=== PATIENT | female | born 1960 | race Caucasian/White ===

== ENCOUNTER 2016-10-26 12:13 | Day surgery (SDC) | payer BC ==
[2016-10-26] MEDS ORDERED: ALPRAZolam 0.5 MG TAB PO ONE (12:37)
--- NOTE | 2016-10-26 13:54 | US ---
ULTRASOUND GUIDED FNA THYROID BIOPSY: CLINICAL HISTORY: 1.8 cm and 1.1 cm left thyroid nodule requested FINDINGS: The procedure was explained to the patient. The risks, complications, benefits and alternatives were discussed and any questions were answered. Informed consent was obtained. Patient was placed supin e on the ultrasound table and prepped and draped in the usual sterile fashion. Utilizing a 25 gauge needle, five passes were made into the 1.8 cm left thyroid nodule. The 1.1 cm nodule was completely c alcified and needle could not traverse to calcified wall.. Patient was stable throughout the procedure. Pathology is pending. All elements of maximal barrier technique were utilized. IMPRESSION: 1. Successful ultrasound guided FNA thyroid biopsy 1.8 cm left thyroid nodule. See above regarding c alcified 1.1 cm left thyroid nodule..
[2016-10-26 16:09] VITALS: TEMP 97.4
[2016-10-26 16:10] VITALS: BP 121/78; PULSE 84; RESP 18
== END 2016-10-26 14:05 | disposition home or self-care (01) ==
LOC: RADPROMAIN 12:13
PROVIDERS: ATTEND Internal Medicine Endocrinology, Diabetes & Metabolism
DX: E04.1 Nontoxic single thyroid nodule (principal)
CPT/HCPCS: 10022; 76942; 88173; 88305

== ENCOUNTER → 2016-12-01 | Outpatient (CLI) | payer BC | END | disposition home or self-care (01) | LOC: LABWHC1 15:07 | PROVIDERS: ATTEND Surgery | DX: E04.1 Nontoxic single thyroid nodule (principal) | CPT/HCPCS: 36415; 84439; 84443; 84481 ==

== ENCOUNTER 2017-01-10 07:56 | Observation (INO) | payer BC ==
[2017-01-05 14:20] VITALS: BMI 35.6
[~2017-01-10 07:56] MED LIST: DEXAMETHASONE SOD PHOSPHATE 10 MG/ML 1 ML VIAL IV ONE; HEPARIN SODIUM,PORCINE 5,000 UNIT/ML 1 ML VIAL SQ ONE; ONDANSETRON 4 MG/2 ML VIAL IVP ONE; Pre Op ABX Message 1 EACH MISC MISCELLANE ONE
[2017-01-10] MEDS: LACTATED RINGERS 1,000 ML IV SCH ×2 (08:22→09:12)
[2017-01-10] MEDS ORDERED: LIDOCAINE 1% 20 ML VIAL (10MG/ML) FOR IV START INTRADERMA ONE (08:22)
[2017-01-10] MEDS ORDERED: HEPARIN SODIUM,PORCINE 5,000 UNIT/ML 1 ML VIAL SQ ONE (08:27)
[2017-01-10] MEDS ORDERED: MIDAZOLAM 2 MG/2 ML VIAL ONE (09:13)
[2017-01-10] MEDS ORDERED: LIDOCAINE 1% INJ 10MG/ML (20 ML MDV) ONE (09:13)
[2017-01-10] MEDS ORDERED: SUCCINYLCHOLINE CHLORIDE 100 MG/5 ML SYR IV ONE (09:13)
[2017-01-10] MEDS ORDERED: PROPOFOL 10 MG/ML 20 ML VIAL IV ONE (09:13)
[2017-01-10] MEDS ORDERED: fentaNYL (PF) 50 MCG/ML 2 ML AMP ONE (09:13)
[2017-01-10] MEDS ORDERED: LACTATED RINGERS 1,000 ML IV ONE ×2 (10:20→12:37)
[2017-01-10] MEDS ORDERED: GELATIN SPONGE,ABSORB (LARGE) 1 EACH SPONGE TOPICAL ONE (11:03)
[2017-01-10] MEDS ORDERED: THROMBIN (BOVINE) 5,000 UNIT VIAL TOPICAL ONE (11:04)
[2017-01-10] MEDS ORDERED: NALOXONE 0.4 MG/ML 1 ML VIAL IV PRN (11:46)
[2017-01-10] MEDS ORDERED: ONDANSETRON 4 MG/2 ML VIAL IVP PRN (11:46)
--- NOTE | 2017-01-10 11:46 | P.OP ---
Date of Procedure: 01/10/17 Preoperative Diagnosis: Left thyroid nodularity, calcified nodule and FNA showing Hurthle cell lesion, status post right thyroid lobectomy many years ago Postoperative Diagnosis: Multiple nodules left lobe of thyroid, inferior nodule being calcified Procedure(s) Performed: Left thyroid lobectomy, and isthmusectomy Implants: Anesthesia: ALDAIRA Surgeon: Annmarie Sky Estimated Blood Loss (ml): 20 IV fluids (ml): 1,500 Pathology: other (Left lobe of thyroid) Condition: stable Disposition: PACU Indications for Procedure: Enlarged left thyroid nodules one calcified unable to sample and another nodular Hurthle cell lesion, patient recommended by endocrinology to have a left thyroid lobectomy, patient status post right thyroid lobectomy many years ago Operative Findings: Nodularity left lobe of thyroid, extensive scar tissue Description of Procedure: Patient was taken to the operating room and following induction of general anesthesia the retractors were placed. The patient was placed in the modified beachchair position. The prep was prepped and draped in a sterile fashion. A collar incision was made approximately 2 fingerbreadths above the sternal notch and carried down through skin and subcutaneous tissue and the platysma. Superior and inferior skin flaps were developed. The strap muscles were in the midline. The strap muscles were excised presently adherent to the left lobe of the thyroid and it was necessary to use meticulous dissection to dissect these off of the thyroid gland. The muscles were carefully dissected free and the gland was able to rotated medially. Again there was marked scar tissue was necessary to carefully dissect this free ligating several vessels and it in the vicinity. The superior pole vessels were then identified these were ligated and divided. Inferior pole vessels were likewise identified and ligated and divided. The lobe was rotated medially being careful to identify and preserve the recurrent laryngeal nerve. The tissues were carefully dissected up onto the trachea and the gland was removed was dissected free on the trachea. The area of the superior and inferior parathyroids were identified and preserved. The isthmus was present and we dissected across the isthmus and to scar tissue and the gland was removed. There appeared to be a small amount of residual thyroid tissue near the inferior pole this was carefully dissected free and this was approximated to the recurrent laryngeal nerve which was preserved this was resected. The area of the ligament of Montgomery was likewise evaluated no evidence of any bleeding was identified small additional amount of tissue was able to be resected from this area. Palpation in the neck did not reveal any adenopathy of concern. Palpation of the right neck did not reveal residual thyroid tissue of concern. The neck was well irrigated. After assured that there was no evidence of any bleeding. Gelfoam and thrombin were placed on either the ligament of Montgomery. Again the recurrent laryngeal nerve was well seen and preserved. The area of the superior inferior parathyroids were identified and preserved as well. The strap muscles were closed in midline using a Vicryl suture. Platysma was closed with 3-0 Vicryl suture. A Sherman drain had been left in this was secured using a silk suture. Skin was closed using 4-0 Monocryl. Patient tolerated procedure in stable condition. Thank you this is a dictation patient seen in each eye 3 times a day 30 The patient tolerated the procedure in stable condition.
[2017-01-10 12:05] VITALS: RESP 16
[2017-01-10] MEDS: HYDROmorphone 1 MG/ML 1 ML SYRINGE IVP PRN ×7 (12:18→23:52)
[2017-01-10 16:35] LABS: Calcium 9.1 mg/dL (8.4-10.2); Magnesium 1.7 mg/dL (1.6-2.3); Phosphorous 4.5 mg/dL (2.5-4.5)
--- NOTE | 2017-01-10 18:01 | P.CONS ---
History of Present Illness - Reason for Consult Consult date: 01/10/17 Medical management Requesting physician: Annmarie Sky - Chief Complaint Post left sided thyroidectomy, palpitation, hyperlipidemia, arrhythmia - History of Present Illness 56-year-old female one of Dr. Young's patient with past medical history of palpitation hypothyroidism previous history of thyroid nodular who has been seen an boiling house oiler in [facility] and has been watching thyroid nodular in the left side for the last few years with fine-needle biopsy and other lately her biopsy showed Hurthle cell lesion. Patient was referred to Dr. Adhikari and is scheduled for elective left sided thyroidectomy which was done today successfully with no complication. Patient was admitted to the floor she has no hoarseness no shortness of breath wheezes or any major complaints still have slight soreness in the neck area otherwise doing well. Review of Systems Constitutional: Reports fatigue, Reports lethargy, Reports malaise, Reports weakness, Denies as per HPI, Denies anorexia, Denies chills, Denies chronic headaches, Denies chronic pain, Denies daytime sleepiness, Denies fever, Denies night sweats, Denies poor appetite, Denies sweats, Denies weight gain, Denies weight loss Eyes: bilateral as per HPI Ears: bilateral: decreased hearing Ears, nose, mouth and throat: Reports nasal congestion, Reports neck fullness/ pressure, Reports swelling in throat, Denies as per HPI, Denies ant. neck pain, Denies bleeding gums, Denies dental pain, Denies dysphagia, Denies epistaxis, Denies headache, Denies hoarseness, Denies mouth pain, Denies nasal discharge, Denies neck lump, Denies nose pain, Denies odynophagia, Denies post-nasal drip, Denies sinus pain, Denies sinus pressure, Denies swelling in mouth, Denies sore throat, Denies vertigo, Denies voice changes Cardiovascular: Reports lightheadedness, Reports orthopnea, Reports palpitations , Reports paroxysmal nocturnal dyspnea, Denies as per HPI, Denies chest pain, Denies claudication, Denies decreased exercise tolerance, Denies dyspnea on exertion, Denies edema, Denies high blood pressure, Denies irregular heart beat , Denies leg edema, Denies phlebitis, Denies rapid heart beat, Denies shortness of breath, Denies syncope Respiratory: Reports congestion, Denies as per HPI, Denies cough, Denies cough with sputum, Denies dyspnea, Denies excessive sputum, Denies hemoptysis, Denies home oxygen, Denies pain, Denies pain on inspiration, Denies pleurisy, Denies respiratory infections, Denies sleep apnea, Denies snoring, Denies wheezing Gastrointestinal: Reports bloating, Reports indigestion, Denies as per HPI, Denies abdominal pain, Denies belching, Denies BRBPR, Denies change in bowel habits, Denies coffee ground emesis, Denies constipation, Denies diarrhea, Denies dyspepsia, Denies early satiety, Denies excessive gas, Denies heartburn, Denies hematemesis, Denies hematochezia, Denies jaundice, Denies lactose intolerance, Denies loss of appetite, Denies melena, Denies nausea, Denies vomiting Musculoskeletal: Reports low back pain, Reports neck pain, Denies as per HPI, Denies arm numbness/tingling, Denies atrophy, Denies fractures, Denies frequent falls, Denies gait dysfunction, Denies hot joints, Denies leg numbness/tingling , Denies limitation of motion, Denies loss of height, Denies morning stiffness, Denies muscle cramps, Denies muscle weakness, Denies myalgias, Denies neck stiffness, Denies prior amputations, Denies redness of joints, Denies shooting arm pain, Denies shooting leg pain Integumentary: Denies as per HPI, Denies acne, Denies boils, Denies brittle nails, Denies change in hair/nails, Denies color changes, Denies darkening of skin, Denies depigmentation, Denies dryness, Denies foot/leg ulcers, Denies growths, Denies hirsutism, Denies lesions, Denies onychomycosis, Denies pruritus , Denies rash, Denies sores, Denies striae, Denies unusual bruising, Denies wounds Neurological: Denies as per HPI, Denies aphasia, Denies ataxia, Denies balance difficulties, Denies burning pain, Denies change in mentation, Denies change in smell/taste, Denies change in speech, Denies confusion, Denies convulsions, Denies double vision, Denies gait dysfunction, Denies head injury, Denies headaches, Denies hearing difficulties, Denies lack of coordination, Denies loss of vision, Denies memory loss, Denies migraines, Denies motor disturbance, Denies numbness, Denies paralysis, Denies paresthesias, Denies seizures, Denies sensory deficit, Denies spasticity, Denies syncope, Denies tic, Denies tingling , Denies transient paralysis, Denies tremors, Denies vertigo, Denies weakness, Denies visual changes Psychiatric: Reports depression, Denies as per HPI, Denies anhedonia, Denies anxiety, Denies anxiety attacks, Denies change in appetite, Denies change in libido, Denies change in sleep habits, Denies confusion, Denies difficulty concentrating, Denies disorientation, Denies hallucinations, Denies hopelessness , Denies hypersomnia, Denies insomnia, Denies irritability, Denies memory loss, Denies mood swings, Denies paranoia, Denies sadness/tearfulness, Denies sleep disturbances, Denies suicidal ideation Endocrine: Reports excessive thirst, Reports fatigue, Reports heat intolerance, Denies as per HPI, Denies cold intolerance, Denies deepening of the voice, Denies excessive sweating, Denies flushing, Denies high blood sugars, Denies increase in ring/shoe/hat size, Denies low blood sugars, Denies nocturia, Denies palpitations, Denies polydipsia, Denies polyphagia, Denies polyuria, Denies proptosis, Denies recent glucocorticoid use, Denies thyroid mass, Denies weight change Hematologic/Lymphatic: Reports easy bruising, Denies as per HPI, Denies easy bleeding, Denies lymphadenopathy, Denies lymphedema, Denies thrombophilia Allergic/Immunologic: Reports allergic rhinitis, Denies as per HPI, Denies anaphylaxis, Denies angioedema, Denies gluten intolerance, Denies persistent infections, Denies seasonal allergies, Denies urticaria, Denies wheezing Past Medical History Past Medical History: Hyperlipidemia, Thyroid Disorder Additional Past Medical History / Comment(s): thyroid nodules, palpitations, varicose veins, History of Any Multi-Drug Resistant Organisms: None Reported Past Surgical History: Tonsillectomy Additional Past Surgical History / Comment(s): partial thyroidectomy, left oophorectomy, loop monitor insertion 07/21/14 Past Anesthesia/Blood Transfusion Reactions: No Reported Reaction Type of Cardiac Device: Loop Device Placement Date:: 07/21/14 Past Psychological History: Depression Smoking Status: Former smoker - Past Family History Mother Family Medical History: Cancer Father Family Medical History: Deep Vein Thrombosis (DVT) Medications and Allergies Home Medications Medication Instructions Recorded Confirmed Type Aspirin 81 mg PO DAILY 05/26/14 01/10/17 History Simvastatin [Zocor] 20 mg PO HS 05/26/14 01/10/17 History Cyanocobalamin (Vitamin B-12) 1,000 mcg PO DAILY 09/07/15 01/10/17 History [Vitamin B12] Ginkgo Biloba [place] Extract [Ginkgo] 60 mg PO DAILY 09/07/15 01/10/17 History Multivitamins, Thera [Multivitamin] 1 tab PO DAILY 09/07/15 01/10/17 History buPROPion HCL [Wellbutrin XL] 300 mg PO QAM 09/07/15 01/10/17 History Cholecalciferol [Vitamin D3] 2,000 unit PO DAILY 10/12/16 01/10/17 History Spironolactone [Aldactone] 25 mg PO DAILY 10/12/16 01/10/17 History Allergies Allergy/AdvReac Type Severity Reaction Status Date / Time No Known Allergies Allergy Verified 01/10/17 08:10 Physical Exam Vitals: Vital Signs Temp Pulse Pulse Resp BP BP Pulse Ox 01/10/17 15:30 74 16 121/64 94 L 01/10/17 15:15 75 16 123/65 98 01/10/17 15:00 74 16 122/62 99 01/10/17 14:45 76 16 117/62 98 01/10/17 14:30 75 16 123/67 99 01/10/17 14:15 76 16 119/65 99 01/10/17 14:00 75 16 141/72 98 01/10/17 13:45 98.0 F 72 16 134/70 98 01/10/17 13:10 98.5 F 68 16 135/89 98 01/10/17 12:55 71 16 143/93 98 01/10/17 12:40 70 16 140/90 98 01/10/17 12:25 98.5 F 71 16 141/92 98 01/10/17 12:10 98.5 F 71 16 139/84 99 01/10/17 11:56 98.5 F 79 16 94 L 01/10/17 08:20 98.2 F 70 20 147/91 96 Intake and Output 01/10/17 01/10/17 01/10/17 06:59 14:59 22:59 Intake Total 2200 Output Total 170 Balance 2029 Intake: IV 2200 Dextrose 5%-0.45% NaCl 1, 100 000 ml @ 100 mls/hr IV . Q10H MAKENNA Rx#:[id number] Output: Urine 150 Estimated Blood Loss 20 Other: Weight 97.069 kg Patient Weight 01/11/17 06:59 Weight 97.069 kg - Constitutional General appearance: no average body habitus, cooperative, no disheveled, no mild distress, no morbidly obese, no acute distress, no obese, no severe distress, no thin - EENT Incision from her thyroidectomy looks good with slight bruise on the neck area in the left side. Eyes: no abnormal pupil, no anicteric sclerae, no disc margins sharp, no edentulous, no EOMI, no PERRLA, no fundus normal, no photophobia, no dentition normal, no poor dentition, no ptosis, no scleral icterus, normal appearance ENT: no hard of hearing, no hearing grossly normal, no NA/AT, normal oropharynx , no other, no pharyngeal erythema, no thrush, no tonsillar exudates, no tonsillar swelling - Neck Neck: no lymphadenopathy, normal ROM, no other, no rigidity, no stridor, no thyromegaly Carotids: bilateral: upstroke normal - Respiratory Respiratory: bilateral: CTA, diminished, dullness, rales - Cardiovascular Rhythm: regular Heart sounds: normal: S1, S2 - Gastrointestinal General gastrointestinal: no absent bowel sounds, no decreased bowel sounds, no distended, no hepatomegaly, no hyperactive bowel sounds, normal bowel sounds, no organomegaly, no rigid, no scaphoid, soft, no splenomegaly, no tenderness, no umbilical hernia, no ventral hernia - Integumentary Integumentary: no calor, no cellulitis, no cyanotic, no decreased turgor, no flushed, no jaundiced, normal, no normal turgor, pale, rash, no ulcer - Neurologic Neurologic: CNII-XII intact - Musculoskeletal Musculoskeletal: gait normal, generalized weakness, no strength equal bilaterally, no right sided weakness, no left sided weakness - Psychiatric Psychiatric: A&O x's 3, appropriate affect Assessment and Plan Plan: 1 post left sided thyroidectomy: A Chin had Hurthle cell from her needle biopsy thyroidectomy was necessity pathology is pending at this point and to follow as an outpatient. 2 hypothyroidism: Patient most likely require thyroid replacement medication can be started in the hospital at 50 g levothyroxine and titrate dose higher depend on her TSH and free T4 in the next few weeks something can before [place] outpatient afterward. 3 chronic history of palpitation: Has been seen Dr. Valenzuela patient had loop monitor not in any medication currently. 4 hyperlipidemia: Has been on simvastatin 20 mg daily continue medication. 5 mild depression: Has been on Wellbutrin 300 mg daily. 6 mild edema: On Aldactone 25 g a day. 7 vitamin D deficiency: Continue vitamin D supplement. 8 GI prophylaxis: Patient will be on Pepcid 20 mg daily. 9 DVT prophylaxis: Patient be continue on knee-high SANTOS hose and Venodyne boots. CODE STATUS: Full code. Dr. Adhikari thank you very much for the consult if I can be any further help to please let me know.
[2017-01-10] MEDS: CALCIUM CARB-VIT D 500MG-200UN 1 EACH TAB PO SCH (18:04)
[2017-01-10] MEDS: HEPARIN SODIUM,PORCINE 5,000 UNIT/ML 1 ML VIAL SQ SCH ×2 (18:05→23:40)
[2017-01-10] MEDS: DEXTROSE 5%-0.45% NACL 1,000 ML IV SCH (20:59)
[2017-01-10] MEDS ORDERED: ATORVASTATIN 10 MG TAB PO SCH (21:00)
[2017-01-11 03:08] VITALS: TEMP 97.9
[2017-01-11] MEDS: DEXTROSE 5%-0.45% NACL 1,000 ML IV SCH ×2 (06:45→10:39)
[2017-01-11] MEDS: HYDROmorphone 1 MG/ML 1 ML SYRINGE IVP PRN (06:46)
[2017-01-11] MEDS: LACTATED RINGERS 1,000 ML IV SCH (08:27)
[2017-01-11] MEDS: HEPARIN SODIUM,PORCINE 5,000 UNIT/ML 1 ML VIAL SQ SCH (08:27)
[2017-01-11] MEDS: CALCIUM CARB-VIT D 500MG-200UN 1 EACH TAB PO SCH (08:28)
[2017-01-11 08:38] VITALS: BP 100/56; PULSE 74
[2017-01-11] MEDS ORDERED: buPROPion XL 300 MG TAB.ER.24H PO SCH (09:00)
[2017-01-11] MEDS ORDERED: NON-FORMULARY DRUG (Ginkgo Biloba Leaf Extract [Ginkgo] 60 MG) PO SCH (09:00)
[2017-01-11] MEDS ORDERED: ASPIRIN 81 MG CHEW PO SCH (09:00)
[2017-01-11] MEDS ORDERED: PANTOPRAZOLE 40 MG/10 ML VIAL IV SCH (09:00)
[2017-01-11] MEDS ORDERED: SPIRONOLACTONE 25 MG TAB PO SCH (09:00)
--- NOTE | 2017-01-11 10:55 | P.DS ---
Providers Date of admission: 01/11/17 03:52 Expected date of discharge: 01/11/17 Attending physician: Annmarie Sky Consults: 01/10/17 16:37 Consult Physician Routine Consulting Provider: Rhea Young Consult Reason/Comments: medical management Do you want consulting provider notified?: Yes Primary care physician: Rhea Young [facility] Course: 56-year-old female admitted on January 10 underwent a Left thyroid lobectomy, and isthmusectomy for Left thyroid nodularity, calcified nodule and FNA showing Hurthle cell lesion, status post right thyroid lobectomy many years ago Indications for Procedure: Enlarged left thyroid nodules one calcified unable to sample and another nodular Hurthle cell lesion, patient recommended by endocrinology to have a left thyroid lobectomy, patient status post right thyroid lobectomy many years ago agents primary endocrinology service by Dr. Crandall [facility] Postop there were no new events. Patient's voice was clear strong. No hoarseness to the voice There was no numbness or tingling. The surgical drain was removed. Surgical site benign. No redness. Patient was tolerating a diet and was felt to be hemodynamically stable and appropriate proceed with a discharge he was reinforced to the patient the patient needed to follow-up with the trolley cleaner Dr. Crandall within the week. Thyroid supplements would need to be restarted per endocrinology's recommendations also reinforced to the patient the patient would need to be on calcium Os-Edwin 500+ D23 times a day. Pain medication is effective for pain control. Patient was felt to be hemodynamically stable and appropriate proceed with a discharge Impression discharge diagnosis Hyperlipidemia 01/10/2017 left thyroid lobectomy Left thyroid lobectomy and isthmusectomy Left thyroid nodularity, calcified nodule and FNA showing Hurthle cell lesion, status post right thyroid lobectomy many years ago History of hypothyroidism Vitamin D deficiency Mild depression nonspecified History of chronic heart palpitations followed by dr torrez The above impression and plan of care have been discussed and directed by signing physician. Abbie Sawyer nurse practitioner acting as scribe for signing physician. Plan - Discharge Summary New Discharge Prescriptions: New Cyanocobalamin [Vitamin B-12] 1,000 mcg PO 1200 tab Levothyroxine Sodium [Levoxyl] 100 mcg PO DAILY #30 tab Calcium Carb-Vit D 500Mg-200Un [Oscal 500+D] 1 each PO TID #90 tablet Continue Simvastatin [Zocor] 20 mg PO HS Aspirin 81 mg PO DAILY Ginkgo Biloba [place] Extract [Ginkgo] 60 mg PO DAILY Multivitamins, Thera [Multivitamin (formulary)] 1 tab PO DAILY buPROPion HCL [Wellbutrin XL] 300 mg PO QAM Spironolactone [Aldactone] 25 mg PO DAILY Cholecalciferol [Vitamin D3] 2,000 unit PO DAILY Cyanocobalamin (Vitamin B-12) [Vitamin B-12] 1,000 mcg PO DAILY Discharge Medication List Aspirin 81 mg PO DAILY 05/26/14 [History] Simvastatin [Zocor] 20 mg PO HS 05/26/14 [History] Ginkgo Biloba [place] Extract [Ginkgo] 60 mg PO DAILY 09/07/15 [History] Multivitamins, Thera [Multivitamin (formulary)] 1 tab PO DAILY 09/07/15 [History ] buPROPion HCL [Wellbutrin XL] 300 mg PO QAM 09/07/15 [History] Cholecalciferol [Vitamin D3] 2,000 unit PO DAILY 10/12/16 [History] Spironolactone [Aldactone] 25 mg PO DAILY 10/12/16 [History] Calcium Carb-Vit D 500Mg-200Un [Oscal 500+D] 1 each PO TID #90 tablet 01/11/17 [ Rx] Cyanocobalamin (Vitamin B-12) [Vitamin B-12] 1,000 mcg PO DAILY 01/11/17 [ History] Cyanocobalamin [Vitamin B-12] 1,000 mcg PO 1200 tab 01/11/17 [Rx] Levothyroxine Sodium [Levoxyl] 100 mcg PO DAILY #30 tab 01/11/17 [Rx] Follow up Appointment(s)/Referral(s): Yakelin Crandall DO [REFERRING] - 01/17/17 Annmarie Sky MD [STAFF PHYSICIAN] - 1 Week Activity/Diet/Wound Care/Special Instructions: Instruct patient to take Os-Edwin with meals 3 times a day Notify Dr. Adhikari if any facial numbness tingling in the hands change in voice increased swelling at the surgical site Discharge Disposition: HOME SELF-CARE
[2017-01-11] MEDS ORDERED: MULTIVITAMINS, THERA 1 EACH TAB PO SCH (12:00)
[2017-01-11] MEDS ORDERED: CYANOCOBALAMIN 500 MCG TAB PO SCH (12:00)
[2017-01-11] MEDS ORDERED: CHOLECALCIFEROL 1,000 UNIT TAB PO SCH (12:00)
== END 2017-01-11 12:16 | disposition home or self-care (01) ==
LOC: OR 07:56 → 3SUR 11:56 → OR 01-11 03:51 → 3SUR 01-11 03:52
PROVIDERS: ADMIT Surgery; ATTEND Surgery
DX: E04.2 Nontoxic multinodular goiter (principal); D34 Benign neoplasm of thyroid gland; E78.5 Hyperlipidemia, unspecified; R00.2 Palpitations; I49.9 Cardiac arrhythmia, unspecified; E03.9 Hypothyroidism, unspecified; F32.9 Major depressive disorder, single episode, unspecified; Z87.891 Personal history of nicotine dependence; Z79.899 Other long term (current) drug therapy; Z79.82 Long term (current) use of aspirin; R60.9 Edema, unspecified; E55.9 Vitamin D deficiency, unspecified
CPT/HCPCS: 88305; 82310 ×2; 83735; 84100; 88331; 88307; 88311; 60225; G0378; J2250; J1644 ×2; J1100; J2405; J2001; J3010; J1170 ×2; J0330; J2704; C9113

== ENCOUNTER 2017-01-13 15:09 | Emergency (ER) | payer BC ==
[2017-01-13 15:27] VITALS: TEMP 99.1
--- NOTE | 2017-01-13 16:54 | ED ---
Recheck HPI - General Chief Complaint: Recheck/Abnormal Lab/Rx Stated Complaint: thyroid surgery/facial numbness Time Seen by Provider: 01/13/17 16:29 Source: patient, RN notes reviewed Mode of arrival: ambulatory Limitations: no limitations - History of Present Illness Initial Comments: Patient is a 56-year-old female presents emergency room for evaluation. Patient had a left thyroidectomy done on 01/11/[address] nOofre Syed. Patient denies any, patient after surgery. Patient states since the surgery she has been having a sore throat. Patient states she was sent home and she still continued to have a sore throat on the left side. Patient also states than having sinus drainage. Patient states that she told them this before discharge and anything about it. Patient stated she's also drinks dancing slight tongue swelling. Patient states today her tongue and her nose feel "tingly". Patient states that she called Dr. Onofre Syed's office and they told her to take Benadryl and to come here. Patient states she is not taking Benadryl. Patient states that for her to return she swallows. Patient denies increased swelling and drainage from surgical site. Patient denies fevers or chills. Patient denies numbness or tingling in extremities. - Related Data Home Medications Medication Instructions Recorded Confirmed Ginkgo Biloba [place] Extract [Ginkgo] 60 mg PO DAILY 09/07/15 01/13/17 Multivitamins, Thera [Multivitamin 1 tab PO DAILY 09/07/15 01/13/17 (formulary)] buPROPion HCL [Wellbutrin XL] 300 mg PO DAILY 09/07/15 01/13/17 Cholecalciferol [Vitamin D3] 2,000 unit PO DAILY 10/12/16 01/13/17 Spironolactone [Aldactone] 25 mg PO DAILY 10/12/16 01/13/17 Cyanocobalamin (Vitamin B-12) 1,000 mcg PO DAILY 01/11/17 01/13/17 [Vitamin B-12] Aspirin EC [Ecotrin Low Dose] 81 mg PO DAILY 01/13/17 01/13/17 Calcium Carb-Vit D 500Mg-200Un 1 tab PO TID 01/13/17 01/13/17 [Oscal 500+D] Simvastatin [Zocor] 20 mg PO HS 01/13/17 01/13/17 Previous Rx's Medication Instructions Recorded Levothyroxine Sodium [Levoxyl] 100 mcg PO DAILY #30 tab 01/11/17 Allergies Allergy/AdvReac Type Severity Reaction Status Date / Time No Known Allergies Allergy Verified 01/11/17 07:20 Review of Systems ROS Statement: Those systems with pertinent positive or pertinent negative responses have been documented in the HPI. ROS Other: All systems not noted in ROS Statement are negative. Past Medical History Past Medical History: Hyperlipidemia, Thyroid Disorder Additional Past Medical History / Comment(s): hx. thyroid nodules, History of Any Multi-Drug Resistant Organisms: None Reported Past Surgical History: Tonsillectomy Additional Past Surgical History / Comment(s): partial thyroidectomy, left oophorectomy, loop monitor insertion 07/21/14 Past Anesthesia/Blood Transfusion Reactions: No Reported Reaction Past Psychological History: Depression Smoking Status: Former smoker - Past Family History Mother Family Medical History: Cancer Father Family Medical History: Deep Vein Thrombosis (DVT) General Exam - General Exam Comments Initial Comments: Sitting in exam room, no acute distress. Limitations: no limitations General appearance: alert, in no apparent distress Head exam: Present: atraumatic, normocephalic, normal inspection Eye exam: Present: normal appearance, PERRL, EOMI Pupils: Present: normal accommodation Expanded Throat exam: normal inspection Neck exam: Present: other (5cm surgical incision over anterior neck. No edema, drainage or erythema noted.) Respiratory exam: Present: normal lung sounds bilaterally. Absent: respiratory distress Cardiovascular Exam: Present: regular rate, normal rhythm, normal heart sounds Extremities exam: Present: normal inspection Back exam: Present: normal inspection Neurological exam: Present: alert, oriented X3, CN II-XII intact, normal gait Psychiatric exam: Present: normal affect, normal mood Skin exam: Present: warm, dry, intact, normal color. Absent: rash Course Vital Signs 01/13/17 01/13/17 15:23 18:35 Temperature 99.1 F Pulse Rate 68 76 Respiratory 17 18 Rate Blood Pressure 134/81 158/79 O2 Sat by Pulse 99 100 Oximetry Medical Decision Making - Medical Decision Making Patient is a 56-year-old female presents to the emergency room for recheck. Patient had a left thyroidectomy done on 01/11/[address] Onofre Syed. Patient complaining of tongue swelling and tingling and nasal tingling. Patient also complaining of nasal drainage and throat pain. Patient's calcium 10.4. TSH 4.870. Patient is currently on levothyroxine daily. I did discuss case with Dr. Onofre Syed who said that patient can be discharged home. Patient will be started on Benadryl for drainage symptoms. Return parameters discussed. Case discussed Dr. Syed. - Lab Data Result diagrams: 01/13/17 16:40 01/13/17 16:40 Lab Results 01/13/17 01/13/17 01/13/17 Range/Units 16:40 16:40 16:40 WBC 7.7 (3.8-10.6) k/uL RBC 4.54 (3.80-5.40) m/uL Hgb 14.0 (11.4-16.0) gm/dL Hct 42.1 (34.0-46.0) % MCV 92.8 (80.0-100.0) fL MCH 30.8 (25.0-35.0) pg MCHC 33.2 (31.0-37.0) g/dL RDW 13.7 (11.5-15.5) % Plt Count 283 (150-450) k/uL Neutrophils % 74 % Lymphocytes % 16 % Monocytes % 7 % Eosinophils % 2 % Basophils % 1 % Neutrophils # 5.7 (1.3-7.7) k/uL Lymphocytes # 1.2 (1.0-4.8) k/uL Monocytes # 0.5 (0-1.0) k/uL Eosinophils # 0.1 (0-0.7) k/uL Basophils # 0.0 (0-0.2) k/uL Sodium 141 (137-145) mmol/L Potassium 4.6 (3.5-5.1) mmol/L Chloride 103 (98-107) mmol/L Carbon Dioxide 27 (22-30) mmol/L Anion Gap 11 mmol/L BUN 12 (7-17) mg/dL Creatinine 0.70 (0.52-1.04) mg/dL Est GFR (MDRD) Af Amer >60 (>60 ml/min/1.73 sqM) Est GFR (MDRD) Non-Af >60 (>60 ml/min/1.73 sqM) Glucose 94 (74-99) mg/dL Calcium 10.4 H (8.4-10.2) mg/dL Phosphorus (2.5-4.5) mg/dL Magnesium 1.9 (1.6-2.3) mg/dL Total Bilirubin 0.5 (0.2-1.3) mg/dL AST 37 H (14-36) U/L ALT 54 H (9-52) U/L Alkaline Phosphatase 86 (38-126) U/L Total Protein 7.0 (6.3-8.2) g/dL Albumin 4.4 (3.5-5.0) g/dL TSH 4.870 H (0.465-4.680) mIU/L Group A Strep Rapid Negative (Negative) 01/13/17 Range/Units 16:40 WBC (3.8-10.6) k/uL RBC (3.80-5.40) m/uL Hgb (11.4-16.0) gm/dL Hct (34.0-46.0) % MCV (80.0-100.0) fL MCH (25.0-35.0) pg MCHC (31.0-37.0) g/dL RDW (11.5-15.5) % Plt Count (150-450) k/uL Neutrophils % % Lymphocytes % % Monocytes % % Eosinophils % % Basophils % % Neutrophils # (1.3-7.7) k/uL Lymphocytes # (1.0-4.8) k/uL Monocytes # (0-1.0) k/uL Eosinophils # (0-0.7) k/uL Basophils # (0-0.2) k/uL Sodium (137-145) mmol/L Potassium (3.5-5.1) mmol/L Chloride (98-107) mmol/L Carbon Dioxide (22-30) mmol/L Anion Gap mmol/L BUN (7-17) mg/dL Creatinine (0.52-1.04) mg/dL Est GFR (MDRD) Af Amer (>60 ml/min/1.73 sqM) Est GFR (MDRD) Non-Af (>60 ml/min/1.73 sqM) Glucose (74-99) mg/dL Calcium (8.4-10.2) mg/dL Phosphorus 3.8 (2.5-4.5) mg/dL Magnesium (1.6-2.3) mg/dL Total Bilirubin (0.2-1.3) mg/dL AST (14-36) U/L ALT (9-52) U/L Alkaline Phosphatase (38-126) U/L Total Protein (6.3-8.2) g/dL Albumin (3.5-5.0) g/dL TSH (0.465-4.680) mIU/L Group A Strep Rapid (Negative) Disposition Clinical Impression: Postop check, Nasal congestion Disposition: HOME SELF-CARE Condition: Good Instructions: *Surgery [facility] - ([facility]) Thyroidectomy Post-Op Instructions Additional Instructions: Take Benadryl as needed. Please follow up with surgeon in 1-2 days. If any new symptom arises or symptoms worsen, return to ER as soon as possible. Referrals: Rhea Young MD [Primary Care Provider] - 1-2 days Annmarie Sky MD [STAFF PHYSICIAN] - 1-2 days Time of Disposition: 18:17
[2017-01-13 17:01] LABS: Basophils % (A) 1 %; CH 30.2; CHCM 32.7; Eosinophils # (A) 0.1 k/uL (0-0.7); Eosinophils % (A) 2 %; HCT 42.1 % (34.0-46.0); HDW 2.08; Luc # (Auto) 0.08; Luc % (Auto) 1; Lymphocytes # (A) 1.2 k/uL (1.0-4.8); Lymphocytes % (A) 16 %; MCH 30.8 pg (25.0-35.0); MCHC 33.2 g/dL (31.0-37.0); MCV 92.8 fL (80.0-100.0); Mean Platelet Volume 7.5; Monocytes # (A) 0.5 k/uL (0-1.0); Monocytes % (A) 7 %; Neutrophils # (A) 5.7 k/uL (1.3-7.7); Neutrophils % (A) 74 %; RBC 4.54 m/uL (3.80-5.40); RDW 13.7 % (11.5-15.5); WBC 7.7 k/uL (3.8-10.6)
[2017-01-13 17:15] LABS: ALT 54 U/L (9-52); AST 37 U/L (14-36); Alkaline Phosphatase 86 U/L (38-126); Anion Gap 11 mmol/L; Calcium 10.4 mg/dL (8.4-10.2); Carbon Dioxide 27 mmol/L (22-30); Chloride 103 mmol/L (98-107); Glucose 94 mg/dL (74-99); Magnesium 1.9 mg/dL (1.6-2.3); Non-African American GFR(MDRD) >60 (>60 ml/min/1.73 sqM); Potassium 4.6 mmol/L (3.5-5.1); Sodium 141 mmol/L (137-145); Total Bilirubin 0.5 mg/dL (0.2-1.3)
[2017-01-13 17:16] LABS: Blood Urea Nitrogen 12 mg/dL (7-17)
[2017-01-13] MEDS ORDERED: diphenhydrAMINE 50 MG CAP PO STA (18:16)
[2017-01-13 18:36] VITALS: BP 158/79; PULSE 76; RESP 18
== END 2017-01-13 18:56 | disposition home or self-care (01) ==
LOC: EC 15:09
DX: R09.81 Nasal congestion (principal); Z51.89 Encounter for other specified aftercare; E78.5 Hyperlipidemia, unspecified; F32.9 Major depressive disorder, single episode, unspecified; Z90.49 Acquired absence of other specified parts of digestive tract; Z87.891 Personal history of nicotine dependence; Z79.899 Other long term (current) drug therapy; Z79.82 Long term (current) use of aspirin
CPT/HCPCS: 36415; 80053; 83735; 84100; 84443; 85025; 87081; 87430; 99283

== ENCOUNTER → 2017-10-27 | Outpatient (CLI) | payer BC ==
--- NOTE | 2017-10-30 10:52 | MM ---
Reason for exam: screening (asymptomatic). Last mammogram was performed 1 year and 4 months ago. History: Patient is postmenopausal. Family history of breast cancer in maternal grandmother at age 62. Benign left mammotome panel of the left breast, July 18, 2011. Benign ultrasound-guided core biopsy of the left breast, March 20, 2000. Benign cyst aspiration of the left breast. Took hormonal contraceptives for 2 years beginning at age 18. Physical Findings: A clinical breast exam by your physician is recommended on an annual basis and results should be correlated with mammographic findings. MG Screening Mammo w CAD Bilateral CC and MLO view(s) were taken. Prior study comparison: June 20, 2016, bilateral MG 3d screening mammo w/cad. May 25, 2015, bilateral MG screening mammo w CAD. There are scattered fibroglandular densities. There is a stable left mass in the central outer breast at middle depth with dystrophic calcifications back to 2011. No suspicious abnormality. Left biopsy marker noted. Left cardiac loop recorder partially seen. No significant changes when compared with prior studies. ASSESSMENT: Benign, BI-RAD 2 RECOMMENDATION: Routine screening mammogram of both breasts in 1 year.
--- NOTE | 2017-10-30 13:44 | BD ---
EXAMINATION TYPE: MG DEXA axial skeleton. DATE OF EXAM: 10/27/2017 COMPARISON: 06.20.2016 CLINICAL HISTORY: 57 YR OLD FEMALE....ICD-10 CODE: N95.1 POST MENOPAUSAL SYMPTOMS Height: 64.4 Weight: 213 FRAX RISK QUESTIONS: Alcohol (3 or more units per day): NO Family History (Parent hip fracture): NO Glucocorticoids (More than 3mos): NO (Ex: prednisone, prednisolone, methylprednisolone, dexamethasone, and hydrocortisone). History of Fracture in Adulthood: NO Secondary Osteoporosis: NO 1. Type 1 Diabetes: NO 2. Hyperthyroidism: NO 3. Menopause before 45: NO 4. Malnutrition: NO 5. Chronic liver disease: O Rheumatoid Arthritis: NO Current Tobacco Use: NO RISK FACTORS HISTORY OF: Family History of Osteoporosis: NONE KNOWN Active: YES Diet low in dairy products/other sources of calcium: NO Postmenopausal woman: YES AT 48 YRS OLD Hyperparathyroidism: NO Adrenal Insufficiency: NO MEDICATIONS: Prednisone or other steroids: PREDNISONE ON AND OFF FOR SINUS Thyroid Medications: YES, SYNTHROID How Long: OVER ONE YR NOW Additional Medications: VIT D AND CALCIUM, WELLBUTRIN, SIMVASTATIN, Additional History: NOTHING ADDITIONAL TO NOTE, EXCEPT OLD LOOP RECORDER IN CHEST, BATTERY EXAM MEASUREMENTS: Bone mineral densitometry was performed using the [employer] System. Bone mineral density as measured about the Lumbar spine is: ----- L1-L4(G/cm2): 0.966 T Score Values are as follows: ----- L1: -2.0 ----- L2: -1.8 ----- L3: -2.1 ----- L4: -1.3 ----- L1-L4: -1.8 Bone mineral density has: Increased 4.7% SINCE 06.20.2016 Bone mineral density about the R hip (g/cm2): 0.880 Bone mineral density about the L hip (g/cm2): 0.904 T Score values are as follows: -----R Neck: -1.1 -----L Neck: -1.0 -----R Total: -1.0 -----L Total: -0.8 Bone mineral density has: Increased 1.0% SINCE 06.20.2016 FRAX%S: THERE IS A 6.5% CHANCE OF A MAJOR OSTEOPOROTIC FX AND 0.4% FOR A HIP FX....PROBABILITY OF F X IN 10 YRS TIME IMPRESSION: Osteopenia (T Score between -2.5 and -1) with regards to the lumbar spine and right hip. There is slightly increased risk of fracture and the patient may be considered for treatment. Re-Screen 2-5 years. NOTE: T-SCORE=SD OF THE YOUNG ADULT MEAN.
== END | disposition home or self-care (01) ==
LOC: RADMAMWWP 14:40
PROVIDERS: ATTEND Family Medicine
DX: Z12.31 Encounter for screening mammogram for malignant neoplasm of breast (principal); M85.88 Other specified disorders of bone density and structure, other site; M85.851 Other specified disorders of bone density and structure, right thigh; N95.1 Menopausal and female climacteric states
CPT/HCPCS: 77067; 77080

== ENCOUNTER 2017-12-14 08:29 | Day surgery (SDC) | payer BC ==
[2017-12-11 11:25] VITALS: BMI 36.1
[~2017-12-14 08:29] MED LIST changes: -DEXAMETHASONE SOD PHOSPHATE 10 MG/ML 1 ML VIAL IV ONE; -HEPARIN SODIUM,PORCINE 5,000 UNIT/ML 1 ML VIAL SQ ONE; -ONDANSETRON 4 MG/2 ML VIAL IVP ONE; -Pre Op ABX Message 1 EACH MISC MISCELLANE ONE; +SODIUM CHLORIDE 0.9% 1,000 ML IV SCH; +ceFAZolin IN SWFI 2 GM/20 ML SYRINGE IVP ONE
[2017-12-14] MEDS ORDERED: SODIUM CHLORIDE 0.9% 500 ML IV ONE (09:00)
[2017-12-14 09:08] VITALS: RESP 16; TEMP 97.8
[2017-12-14] MEDS ORDERED: LIDOCAINE 1% INJ 10MG/ML (20 ML MDV) ONE (09:50)
[2017-12-14] MEDS ORDERED: MIDAZOLAM 2 MG/2 ML VIAL ONE (09:55)
[2017-12-14] MEDS ORDERED: ceFAZolin IN SWFI 2 GM/20 ML SYRINGE IVP ONE (09:58)
[2017-12-14] MEDS ORDERED: LIDOCAINE 1% INJ 10MG/ML (20 ML MDV) SQ ONE (10:00)
[2017-12-14] MEDS ORDERED: MIDAZOLAM 2 MG/2 ML VIAL IVP ONE (10:00)
--- NOTE | 2017-12-14 10:27 | P.PCN ---
Preoperative Diagnosis: Loop explant under sedation and local anesthesia. Patient was brought to the EP lab in a fasting state. Written informed consent was obtained prior to the procedure. The subcutaneous device was successfully explanted under local anesthesia. Preoperative antibiotics were administered. The wound was closed in layers and dressed per protocol. Result: Successful loop monitor explantation. Patient underwent EP procedure under conscious sedation/moderate sedation, monitoring of the level of consciousness and physiologic parameters including but not limited to vital signs and oxygenation. Patient tolerated the procedure well without any acute complications. Start time: 959 Stop time: 1007 8 minutes Condition: stable Disposition: same day
[2017-12-14 12:01] VITALS: BP 134/63; PULSE 86
== END 2017-12-14 11:28 | disposition home or self-care (01) ==
LOC: CATHEP 08:29
PROVIDERS: ATTEND Internal Medicine Clinical Cardiac Electrophysiology
DX: R55 Syncope and collapse (principal); R00.2 Palpitations; Z45.09 Encounter for adjustment and management of other cardiac device; E78.5 Hyperlipidemia, unspecified; E89.0 Postprocedural hypothyroidism; Z82.3 Family history of stroke; Z82.49 Family history of ischemic heart disease and other diseases of the circulatory system; Z87.891 Personal history of nicotine dependence; I49.3 Ventricular premature depolarization; Z79.890 Hormone replacement therapy; Z79.82 Long term (current) use of aspirin; Z79.899 Other long term (current) drug therapy
CPT/HCPCS: 33284; J2250; J2001; J0690

== ENCOUNTER 2018-08-04 19:29 | Inpatient (IN) | payer BC ==
[2018-08-04] MEDS ORDERED: HYDROmorphone 0.5 MG/0.5 ML SYRINGE IVP STA ×3 (20:12→22:25)
[2018-08-04] MEDS ORDERED: SODIUM CHLORIDE 0.9% 1,000 ML IV STA ×2 (20:13→21:49)
--- NOTE | 2018-08-04 20:15 | ED ---
General Adult HPI <Kristofer Adamson - Last Filed: 08/04/18 23:02> - General Source: patient, RN notes reviewed Mode of arrival: ambulatory Limitations: no limitations <Med Villeda - Last Filed: 08/05/18 03:47> - General Chief complaint: Abdominal Pain Stated complaint: RLQ pain Time Seen by Provider: 08/04/18 19:50 - History of Present Illness Initial comments: 58-year-old female presents to the emergency department for a chief complaint of right lower quadrant pain 24 hours. Patient states this is getting worse and rates her pain at a 10 out of 10. Patient states it is a sharp stabbing pain in the right lower abdomen and denies radiating pain. Patient states she has had similar pain in the left lower quadrant and her "ovary had fallen into the cul-de-sac." Patient states this feels the same but on the right side. Patient denies nausea or vomiting. Patient denies fevers or chills. Patient has no other complaints at this time including shortness of breath, chest pain, nausea or vomiting, headache, or visual changes. (Med Villeda) - Related Data Home Medications Medication Instructions Recorded Confirmed Ginkgo Biloba [place] Extract [Ginkgo] 60 mg PO DAILY 09/07/15 08/04/18 Multivitamins, Thera [Multivitamin 1 tab PO DAILY 09/07/15 08/04/18 (formulary)] Cholecalciferol [Vitamin D3] 1,000 unit PO DAILY 10/12/16 08/04/18 Cyanocobalamin (Vitamin B-12) 1,000 mcg PO DAILY 01/11/17 08/04/18 [Vitamin B-12] Calcium Carb-Vit D 500Mg-200Un 1 tab PO TID 01/13/17 08/04/18 [Oscal 500+D] Simvastatin [Zocor] 20 mg PO HS 01/13/17 08/04/18 Levothyroxine Sodium [Synthroid] 112 mcg PO DAILY 12/11/17 08/04/18 Allergies Allergy/AdvReac Type Severity Reaction Status Date / Time No Known Allergies Allergy Verified 08/04/18 23:19 Review of Systems ROS Other: All systems not noted in ROS Statement are negative. <Kristofer Adamson - Last Filed: 08/04/18 23:02> ROS Other: All systems not noted in ROS Statement are negative. <Med Villeda - Last Filed: 08/05/18 03:47> ROS Statement: Those systems with pertinent positive or pertinent negative responses have been documented in the HPI. Past Medical History Past Medical History: Hyperlipidemia, Thyroid Disorder Additional Past Medical History / Comment(s): see Dr Valenzuela H&P, History of Any Multi-Drug Resistant Organisms: None Reported Past Surgical History: Tonsillectomy Additional Past Surgical History / Comment(s): partial thyroidectomy, then complete thyroidectomy, left oophorectomy/salpingectomy, loop monitor insertion 07/21/14 Past Anesthesia/Blood Transfusion Reactions: No Reported Reaction Past Psychological History: Depression Smoking Status: Former smoker Past Alcohol Use History: None Reported Past Drug Use History: None Reported - Past Family History Mother Family Medical History: Cancer Father Family Medical History: Deep Vein Thrombosis (DVT) <Med Villeda - Last Filed: 08/05/18 03:47> General Exam Limitations: no limitations General appearance: alert, in no apparent distress Head exam: Present: atraumatic, normocephalic, normal inspection Eye exam: Present: normal appearance, PERRL, EOMI. Absent: scleral icterus, conjunctival injection, periorbital swelling ENT exam: Present: normal exam, mucous membranes moist Neck exam: Present: normal inspection, full ROM. Absent: tenderness, meningismus, lymphadenopathy Respiratory exam: Present: normal lung sounds bilaterally. Absent: respiratory distress, wheezes, rales, rhonchi, stridor Cardiovascular Exam: Present: regular rate, normal rhythm, normal heart sounds. Absent: systolic murmur, diastolic murmur, rubs, gallop, clicks GI/Abdominal exam: Present: soft, tenderness (to the RLQ, no tenderness elswhere in abdomen), normal bowel sounds. Absent: distended, guarding, rebound , rigid Back exam: Absent: CVA tenderness (R), CVA tenderness (L) Neurological exam: Present: alert, oriented X3, CN II-XII intact Psychiatric exam: Present: normal affect, normal mood <Med Villeda - Last Filed: 08/05/18 03:47> Course <Kristofer Adamson - Last Filed: 08/04/18 23:02> <Med Villeda - Last Filed: 08/05/18 03:47> Vital Signs 08/04/18 08/04/18 08/04/18 19:31 20:43 22:29 Temperature 99.3 F 98.6 F 100.5 F H Pulse Rate 94 68 82 Respiratory 20 14 15 Rate Blood Pressure 176/102 142/86 129/74 O2 Sat by Pulse 100 98 99 Oximetry 08/05/18 00:26 Temperature 99.5 F Pulse Rate 95 Respiratory 16 Rate Blood Pressure 139/81 O2 Sat by Pulse 95 Oximetry - Reevaluation(s) Reevaluation #1: 08/04/18 23:03 Patient reevaluated by myself, Dr. Adamson. Patient resting comfortably in bed and states discomfort is starting to improved following second dose of pain medication. Case was discussed in detail with Dr. Mathew, who will admit covered for surgical call. I did review and agree with the findings. This includes all diagnostic interpretations and treatment plan. (Kristofer Adamson) 08/04/18 22:39 Patient given 30 mls/kg of IV fluids for ideal body weight of 62 kg (Med Villeda) Medical Decision Making - Lab Data Result diagrams: 08/04/18 20:00 08/04/18 20:00 <Kristofer Adamson - Last Filed: 08/04/18 23:02> - Lab Data Result diagrams: 08/04/18 20:00 08/04/18 20:00 <Med Villeda - Last Filed: 08/05/18 03:47> - Medical Decision Making 58-year-old female since to the emergency department for chief complaint of right lower quadrant pain times one day. CBC does show mild cytosis of 11.5. CMP unremarkable. CT of abdomen and pelvis shows severe acute appendicitis causing suspected distal partial small bowel obstruction due to inflammatory changes. No fluid collection or abscess seen. Patient given 30 milliliters per kilogram of IV fluids. Zosyn started. Patient admitted to surgery. ( Med Villeda) - Lab Data Lab Results 08/04/18 08/04/18 08/04/18 Range/Units 19:36 20:00 20:00 WBC 11.5 H (3.8-10.6) k/uL RBC 4.68 (3.80-5.40) m/uL Hgb 14.2 (11.4-16.0) gm/dL Hct 43.0 (34.0-46.0) % MCV 91.9 (80.0-100.0) fL MCH 30.3 (25.0-35.0) pg MCHC 33.0 (31.0-37.0) g/dL RDW 13.1 (11.5-15.5) % Plt Count 316 (150-450) k/uL Neutrophils % 72 % Lymphocytes % 19 % Monocytes % 7 % Eosinophils % 2 % Basophils % 0 % Neutrophils # 8.2 H (1.3-7.7) k/uL Lymphocytes # 2.2 (1.0-4.8) k/uL Monocytes # 0.8 (0-1.0) k/uL Eosinophils # 0.2 (0-0.7) k/uL Basophils # 0.0 (0-0.2) k/uL Sodium 139 (137-145) mmol/L Potassium 4.1 (3.5-5.1) mmol/L Chloride 108 H (98-107) mmol/L Carbon Dioxide 22 (22-30) mmol/L Anion Gap 9 mmol/L BUN 9 (7-17) mg/dL Creatinine 0.53 (0.52-1.04) mg/dL Est GFR (CKD-EPI)AfAm >90 (>60 ml/min/1.73 sqM) Est GFR (CKD-EPI)NonAf >90 (>60 ml/min/1.73 sqM) Glucose 130 H (74-99) mg/dL Plasma Lactic Acid [place] (0.7-2.0) mmol/L Calcium 10.3 H (8.4-10.2) mg/dL Total Bilirubin 1.1 (0.2-1.3) mg/dL AST 19 (14-36) U/L ALT 22 (9-52) U/L Alkaline Phosphatase 80 (38-126) U/L Total Protein 6.7 (6.3-8.2) g/dL Albumin 4.3 (3.5-5.0) g/dL Amylase 52 (30-110) U/L Lipase 95 (23-300) U/L Urine Color Light Yellow Urine Appearance Clear (Clear) Urine pH 5.5 (5.0-8.0) Ur Specific [place] 1.005 (1.001-1.035) Urine Protein Negative (Negative) Urine Glucose (UA) Negative (Negative) Urine Ketones Negative (Negative) Urine Blood Negative (Negative) Urine Nitrite Negative (Negative) Urine Bilirubin Negative (Negative) Urine Urobilinogen <2.0 (<2.0) mg/dL Ur Leukocyte Esterase Moderate H (Negative) Urine RBC 1 (0-5) /hpf Urine WBC 14 H (0-5) /hpf Ur Squamous Epith Cells <1 (0-4) /hpf Urine Bacteria Occasional H (None) /hpf Urine Mucus Rare H (None) /hpf 08/04/18 Range/Units 20:00 WBC (3.8-10.6) k/uL RBC (3.80-5.40) m/uL Hgb (11.4-16.0) gm/dL Hct (34.0-46.0) % MCV (80.0-100.0) fL MCH (25.0-35.0) pg MCHC (31.0-37.0) g/dL RDW (11.5-15.5) % Plt Count (150-450) k/uL Neutrophils % % Lymphocytes % % Monocytes % % Eosinophils % % Basophils % % Neutrophils # (1.3-7.7) k/uL Lymphocytes # (1.0-4.8) k/uL Monocytes # (0-1.0) k/uL Eosinophils # (0-0.7) k/uL Basophils # (0-0.2) k/uL Sodium (137-145) mmol/L Potassium (3.5-5.1) mmol/L Chloride (98-107) mmol/L Carbon Dioxide (22-30) mmol/L Anion Gap mmol/L BUN (7-17) mg/dL Creatinine (0.52-1.04) mg/dL Est GFR (CKD-EPI)AfAm (>60 ml/min/1.73 sqM) Est GFR (CKD-EPI)NonAf (>60 ml/min/1.73 sqM) Glucose (74-99) mg/dL Plasma Lactic Acid [place] 1.7 (0.7-2.0) mmol/L Calcium (8.4-10.2) mg/dL Total Bilirubin (0.2-1.3) mg/dL AST (14-36) U/L ALT (9-52) U/L Alkaline Phosphatase (38-126) U/L Total Protein (6.3-8.2) g/dL Albumin (3.5-5.0) g/dL Amylase (30-110) U/L Lipase (23-300) U/L Urine Color Urine Appearance (Clear) Urine pH (5.0-8.0) Ur Specific [place] (1.001-1.035) Urine Protein (Negative) Urine Glucose (UA) (Negative) Urine Ketones (Negative) Urine Blood (Negative) Urine Nitrite (Negative) Urine Bilirubin (Negative) Urine Urobilinogen (<2.0) mg/dL Ur Leukocyte Esterase (Negative) Urine RBC (0-5) /hpf Urine WBC (0-5) /hpf Ur Squamous Epith Cells (0-4) /hpf Urine Bacteria (None) /hpf Urine Mucus (None) /hpf Disposition <Kristofer Adamson - Last Filed: 08/04/18 23:02> Is patient prescribed a controlled substance at d/c from ED?: No Time of Disposition: 00:00 <Med Villeda - Last Filed: 08/05/18 03:47> Clinical Impression: Appendicitis, Small bowel obstruction Disposition: ADMITTED IP TO THIS HOSP Condition: Fair
[2018-08-04 20:32] LABS: Basophils % (A) 0 %; Eosinophils # (A) 0.2 k/uL (0-0.7); Eosinophils % (A) 2 %; HGB 14.2 gm/dL (11.4-16.0); Lymphocytes # (A) 2.2 k/uL (1.0-4.8); Lymphocytes % (A) 19 %; MCH 30.3 pg (25.0-35.0); MCV 91.9 fL (80.0-100.0); Mean Platelet Volume 7.1; Monocytes # (A) 0.8 k/uL (0-1.0); Monocytes % (A) 7 %; Neutrophils # (A) 8.2 k/uL (1.3-7.7); Neutrophils % (A) 72 %; Platelet Count 316 k/uL (150-450); RBC 4.68 m/uL (3.80-5.40); RDW 13.1 % (11.5-15.5); WBC 11.5 k/uL (3.8-10.6)
[2018-08-04 20:40] LABS: Appearance,Urine Clear (Clear); Bacteria,Urine Occasional /hpf; Bilirubin,Urine Negative (Negative); Blood,Urine Negative (Negative); Color,Urine Light Yellow; Glucose,Urine (UA) Negative (Negative); Ketones,Urine Negative (Negative); Leukocyte Esterase,Urine Moderate (Negative); Mucus,Urine Rare /hpf; Nitrite,Urine Negative (Negative); PH, Urine 5.5 (5.0-8.0); Protein,Urine Negative (Negative); RBC,Urine 1 /hpf (0-5); Specific Gravity,Urine 1.005 (1.001-1.035); Squamous Epithelial Cell,Urine <1 /hpf (0-4); Urobilinogen,Urine <2.0 mg/dL (<2.0); WBC,Urine 14 /hpf (0-5)
[2018-08-04 20:41] LABS: ALT 22 U/L (9-52); AST 19 U/L (14-36); Albumin 4.3 g/dL (3.5-5.0); Alkaline Phosphatase 80 U/L (38-126); Amylase 52 U/L (30-110); Anion Gap 9 mmol/L; Blood Urea Nitrogen 9 mg/dL (7-17); Calcium 10.3 mg/dL (8.4-10.2); Carbon Dioxide 22 mmol/L (22-30); Chloride 108 mmol/L (98-107); Glucose 130 mg/dL (74-99); Lipase 95 U/L (23-300); Potassium 4.1 mmol/L (3.5-5.1); Sodium 139 mmol/L (137-145); Total Bilirubin 1.1 mg/dL (0.2-1.3); Total Protein 6.7 g/dL (6.3-8.2)
--- NOTE | 2018-08-04 21:37 | CT ---
EXAMINATION TYPE: CT abdomen pelvis w con DATE OF EXAM: 08/04/2018 HISTORY: RLQ pain CT DLP: 1373.1mGycm Automated Exposure Control for Dose Reduction was Utilized. CONTRAST: CT scan of the abdomen and pelvis is performed without oral but with IV Contrast, patient injected wi th 100 mL of Isovue 300. COMPARISON: CT abdomen pelvis June 12, 2011 FINDINGS: LUNG BASES: No significant abnormality is appreciated. LIVER/GB: No significant abnormality is appreciated. PANCREAS: No significant abnormality is seen. SPLEEN: No significant abnormality is seen. ADRENALS: No significant abnormality is seen. KIDNEYS: No significant abnormality is seen. BOWEL: New small hiatal hernia is identified. Evaluation bowel is suboptimal secondary to lack of ent kia contrast. There is no suspicious dilatation of stomach or duodenal sweep. There are fluid and fe prema prominent small bowel loops in the lower abdomen measuring up to 2.8 cm in diameter. Appendix is identified in the right lower quadrant from cecum seen on axial images 60 through 65. There is mid se gment appendicolith on axial image 62. There is mild ill-defined fluid and fat stranding. Appendix is thickened to 13 mm axial image 64 at tip. Terminal ileum shows no suspicious wall thickening or dila tation. Mild inflammatory change is present to the central lower abdomen. Mild wall thickening and di stal ileal loop right lower quadrant and pelvis is likely reactive causing the partial distal small b owel obstruction UTERUS/ADNEXA: Heterogeneous lobulated anteverted uterus is suspicious for underlying fibroids as is prominent for patient's postmenopausal chronologic age. Scattered pelvic phleboliths are seen.. LYMPH NODES: No greater than 1cm abdominal or pelvic lymph nodes are appreciated. OSSEOUS STRUCTURES: Slight levoconvex scoliotic curvature is present. OTHER: No significant additional abnormality is seen. IMPRESSION: CT findings consistent with a fairly moderate to severe acute appendicitis causing suspec julia distal partial small bowel obstruction due to reactive surrounding inflammatory change. No focal fluid collection or abscess seen. No pneumoperitoneum noted. Critical results communicated to ordering ER physician office assistant via telephone at time of dictation.
[2018-08-04] MEDS ORDERED: PIPERACILLIN-TAZOBACTAM 3.375 GM in SODIUM CHLORIDE 0.9% 100 ML IVPB STA (21:50)
[2018-08-04] MEDS ORDERED: ACETAMINOPHEN IV (For NPO) 1,000 MG in EMPTY BAG 1 BAG IVPB STA (22:39)
[2018-08-05] MEDS ORDERED: HYDROmorphone 0.5 MG/0.5 ML SYRINGE IVP PRN
[2018-08-05] MEDS ORDERED: ONDANSETRON 4 MG/2 ML VIAL IVP PRN
[2018-08-05] MEDS ORDERED: NALOXONE 0.4 MG/ML 1 ML VIAL IV PRN
[2018-08-05] MEDS ORDERED: ACETAMINOPHEN IV (For NPO) 1,000 MG in EMPTY BAG 1 BAG IVPB PRN (00:02)
[2018-08-05] MEDS: SODIUM CHLORIDE 0.9% 1,000 ML IV SCH ×3 (00:33→21:10)
[2018-08-05 01:22] VITALS: BMI 36.2
[2018-08-05] MEDS: MORPHINE SULFATE 4 MG/ML SYRINGE IV PRN ×2 (04:25→07:53)
[2018-08-05] MEDS ORDERED: PIPERACILLIN-TAZOBACTAM 3.375 GM in SODIUM CHLORIDE 0.9% 100 ML IVPB SCH (05:00)
--- NOTE | 2018-08-05 10:50 | P.GSHP ---
History of Present Illness H&P Date: 08/05/18 CHIEF COMPLAINT: Right lower quadrant abdominal pain with appendicitis for over 2 day. HISTORY OF PRESENT ILLNESS: The patient is a 58-year-old female who presents with 2 day history of periumbilical with right lower quadrant abdominal pain that 2 nights ago night. She reports having similar abdominal pain along the left side with an incarcerated left ovary and fallopian tube requiring Pfannenstiel incision including exploration 10 years ago. Personal history of palpitations which was addressed with Dr. Valenzuela 3-5 years ago with total thyroidectomy. She presented with elevated leukocytosis and sepsis protocol. Diagnostic findings consistent with acute appendicitis. PAST MEDICAL HISTORY: See list. PAST SURGICAL HISTORY: See list. CURRENT MEDICATIONS: See list. ALLERGIES: See list. SOCIAL HISTORY: Non-tobacco user. FAMILY HISTORY: Denies Crohns disease and ulcerative colitis. REVIEW OF ORGAN SYSTEMS: CONSTITUTIONAL: Had fever. No recent weight loss. HEENT: Denies any trouble with vision, hearing or nosebleeds. No difficulty swallowing. LYMPHATIC: The patient denies any lumps and bumps around the neck. ENDOCRINE: Has thyroid disorders. Denies any blood sugar glucose intolerance. RESPIRATORY: Denies shortness of breath including chronic cough. CARDIOVASCULAR: Past history of heart palpitations including wearing the heart monitor for 3 years GASTROINTESTINAL: Denies regurgitation of bile at night as well as intermittent nausea. No blood in stools. GENITOURINARY: Past history of incarcerated left ovary and fallopian tube requiring exploration 10 years ago MUSCULOSKELETAL: Has occasional arthritis NEUROLOGIC: Denies any numbness or tingling along the distal extremities. No seizure disorders or headaches. PSYCHIATRIC: Denies any depression or suicidal ideation. HEMATOLOGIC: Denies any abnormal bleeding or bruising. PHYSICAL EXAMINATION: GENERAL: Well developed and in no acute distress. Pleasant. HEENT: No sclera icterus. Extraocular movements grossly intact. Moist buccal mucosa. Head is atraumatic, normocephalic. Hears conversational speech. No nasal drainage. NECK: Supple without lymphadenopathy. No JV distention. CHEST: Non-labored respirations and equal bilateral excursions. CARDIOVASCULAR: Regular rate and rhythm. Palpable 2+ radial pulses. ABDOMEN: Soft, tender at the right lower quadrant. Obese MUSCULOSKELETAL: No clubbing, cyanosis or edema. NEUROLOGIC: No focal or lateralizing signs. PSYCH: Appropriate affect. Alert and oriented to person, place and time. SKIN: Well perfused. Good skin turgor. LABS: Reviewed STUDIES: CT of the abdomen and pelvis reviewed with findings consistent with appendicitis. ASSESSMENT: 1. Right lower quadrant pain. 2. Appendicitis. 3. Leukocytosis. PLAN: 1. I have discussed benefits and risks of robotic appendectomy with history of previous pelvic surgery including size of body habitus 2. Bilateral SCDs. 3. Antibiotics. 4. DVT prophylaxis with heparin. 5. GI prophylaxis. Past Medical History Past Medical History: Hyperlipidemia, Thyroid Disorder Additional Past Medical History / Comment(s): see Dr Valenzuela H&P, History of Any Multi-Drug Resistant Organisms: None Reported Past Surgical History: Tonsillectomy Additional Past Surgical History / Comment(s): partial thyroidectomy, then complete thyroidectomy, left oophorectomy/salpingectomy, loop monitor insertion 07/21/14 Past Anesthesia/Blood Transfusion Reactions: No Reported Reaction Past Psychological History: Depression Smoking Status: Former smoker Past Alcohol Use History: None Reported Past Drug Use History: None Reported - Past Family History Mother Family Medical History: Cancer Father Family Medical History: Deep Vein Thrombosis (DVT) Medications and Allergies Home Medications Medication Instructions Recorded Confirmed Type Ginkgo Biloba [place] Extract [Ginkgo] 60 mg PO DAILY 09/07/15 08/04/18 History Multivitamins, Thera [Multivitamin 1 tab PO DAILY 09/07/15 08/04/18 History (formulary)] Cholecalciferol [Vitamin D3] 1,000 unit PO DAILY 10/12/16 08/04/18 History Cyanocobalamin (Vitamin B-12) 1,000 mcg PO DAILY 01/11/17 08/04/18 History [Vitamin B-12] Calcium Carb-Vit D 500Mg-200Un 1 tab PO TID 01/13/17 08/04/18 History [Oscal 500+D] Simvastatin [Zocor] 20 mg PO HS 01/13/17 08/04/18 History Levothyroxine Sodium [Synthroid] 112 mcg PO DAILY 12/11/17 08/04/18 History Allergies Allergy/AdvReac Type Severity Reaction Status Date / Time No Known Allergies Allergy Verified 08/04/18 23:19 Surgical - Exam Vital Signs Temp Pulse Resp BP Pulse Ox 99.3 F 94 20 176/102 100 08/04/18 19:31 08/04/18 19:31 08/04/18 19:31 08/04/18 19:31 08/04/18 19:31 Results - Labs 08/04/18 20:00 08/04/18 20:00 Abnormal Lab Results - Last 24 Hours (Table) 08/04/18 08/04/18 08/04/18 Range/Units 19:36 20:00 20:00 WBC 11.5 H (3.8-10.6) k/uL Neutrophils # 8.2 H (1.3-7.7) k/uL Chloride 108 H (98-107) mmol/L Glucose 130 H (74-99) mg/dL Calcium 10.3 H (8.4-10.2) mg/dL Ur Leukocyte Esterase Moderate H (Negative) Urine WBC 14 H (0-5) /hpf Urine Bacteria Occasional H (None) /hpf Urine Mucus Rare H (None) /hpf Diabetes panel 08/04/18 Range/Units 20:00 Sodium 139 (137-145) mmol/L Potassium 4.1 (3.5-5.1) mmol/L Chloride 108 H (98-107) mmol/L Carbon Dioxide 22 (22-30) mmol/L BUN 9 (7-17) mg/dL Creatinine 0.53 (0.52-1.04) mg/dL Glucose 130 H (74-99) mg/dL Calcium 10.3 H (8.4-10.2) mg/dL AST 19 (14-36) U/L ALT 22 (9-52) U/L Alkaline Phosphatase 80 (38-126) U/L Total Protein 6.7 (6.3-8.2) g/dL Albumin 4.3 (3.5-5.0) g/dL Calcium panel 08/04/18 Range/Units 20:00 Calcium 10.3 H (8.4-10.2) mg/dL Albumin 4.3 (3.5-5.0) g/dL Pituitary panel 08/04/18 Range/Units 20:00 Sodium 139 (137-145) mmol/L Potassium 4.1 (3.5-5.1) mmol/L Chloride 108 H (98-107) mmol/L Carbon Dioxide 22 (22-30) mmol/L BUN 9 (7-17) mg/dL Creatinine 0.53 (0.52-1.04) mg/dL Glucose 130 H (74-99) mg/dL Calcium 10.3 H (8.4-10.2) mg/dL Adrenal panel 08/04/18 Range/Units 20:00 Sodium 139 (137-145) mmol/L Potassium 4.1 (3.5-5.1) mmol/L Chloride 108 H (98-107) mmol/L Carbon Dioxide 22 (22-30) mmol/L BUN 9 (7-17) mg/dL Creatinine 0.53 (0.52-1.04) mg/dL Glucose 130 H (74-99) mg/dL Calcium 10.3 H (8.4-10.2) mg/dL Total Bilirubin 1.1 (0.2-1.3) mg/dL AST 19 (14-36) U/L ALT 22 (9-52) U/L Alkaline Phosphatase 80 (38-126) U/L Total Protein 6.7 (6.3-8.2) g/dL Albumin 4.3 (3.5-5.0) g/dL Assessment and Plan (1) Peritoneal adhesions Current Visit: Yes Status: Acute Code(s): K66.0 - PERITONEAL ADHESIONS ( POSTPROCEDURAL) (POSTINFECTION) SNOMED Code(s): 41737708 (2) Palpitations Current Visit: Yes Status: Acute Code(s): R00.2 - PALPITATIONS SNOMED Code (s): 99422069 (3) Hyperthyroidism Current Visit: Yes Status: Acute Code(s): E05.90 - THYROTOXICOSIS, UNSP WITHOUT THYROTOXIC CRISIS OR STORM SNOMED Code(s): 79883744 (4) History of thyroidectomy Current Visit: Yes Status: Acute Code(s): Z98.890 - OTHER SPECIFIED POSTPROCEDURAL STATES SNOMED Code(s): 324117419 (5) Morbid obesity with BMI of 40.0-44.9, adult Current Visit: Yes Status: Acute Code(s): E66.01 - MORBID (SEVERE) OBESITY DUE TO EXCESS CALORIES; Z68.41 - BODY MASS INDEX (BMI) 40.0-44.9, ADULT SNOMED Code(s): 877476882 (6) Appendicitis Current Visit: Yes Status: Acute Code(s): K37 - UNSPECIFIED APPENDICITIS SNOMED Code(s): 72361691 (7) Small bowel obstruction Current Visit: Yes Status: Acute Code(s): K56.609 - UNSP INTESTNL OBST, UNSP TO PARTIAL VERSUS COMPLETE OBST SNOMED Code(s): 666529485
[2018-08-05] MEDS ORDERED: ceFAZolin IN SWFI 2 GM/20 ML SYRINGE IVP ONE (11:30)
[2018-08-05] MEDS ORDERED: HEPARIN SODIUM,PORCINE 5,000 UNIT/ML 1 ML VIAL SQ ONE (11:30)
[2018-08-05] MEDS ORDERED: ACETAMINOPHEN IV (For NPO) 1,000 MG in EMPTY BAG 1 BAG IVPB ONE (11:30)
[2018-08-05] MEDS ORDERED: MIDAZOLAM 2 MG/2 ML VIAL ONE (12:12)
[2018-08-05] MEDS ORDERED: fentaNYL (PF) 50 MCG/ML 2 ML AMP ONE (12:12)
[2018-08-05] MEDS ORDERED: PROPOFOL 10 MG/ML 20 ML VIAL IV ONE (12:12)
[2018-08-05] MEDS ORDERED: SUCCINYLCHOLINE CHLORIDE 100 MG/5 ML SYR IV ONE (12:12)
[2018-08-05] MEDS ORDERED: KETOROLAC 30 MG/ML 1 ML VIAL ONE (12:12)
[2018-08-05] MEDS ORDERED: GLYCOPYRROLATE 0.2 MG/ML 2 ML VIAL ONE (12:12)
[2018-08-05] MEDS ORDERED: LIDOCAINE 1% INJ 10MG/ML (20 ML MDV) ONE (12:12)
[2018-08-05] MEDS ORDERED: ROCURONIUM BROMIDE 10 MG/ML 10 ML VIAL IV ONE (12:12)
[2018-08-05] MEDS ORDERED: HEPARIN SODIUM,PORCINE 5,000 UNIT/ML 1 ML VIAL ONE (12:12)
[2018-08-05] MEDS ORDERED: NEOSTIGMINE 1 MG/ML 10 ML VIAL ONE (12:12)
[2018-08-05] MEDS ORDERED: SODIUM CHLORIDE 0.9% 1,000 ML IV ONE (12:17)
[2018-08-05] MEDS ORDERED: LIDOCAINE 1%-EPI 1:100,000 20 ML VIAL SQ ONE (12:45)
[2018-08-05 13:36] VITALS: RESP 16
[2018-08-05] MEDS ORDERED: ONDANSETRON 4 MG/2 ML VIAL IVP ONE (13:40)
[2018-08-05] MEDS ORDERED: METOCLOPRAMIDE 5 MG/ML 2 ML VIAL IVP PRN (13:55)
[2018-08-05] MEDS ORDERED: HYDROcodone/APAP 5-325MG 1 EACH TAB PO PRN (13:55)
[2018-08-05] MEDS ORDERED: HYDROmorphone 1 MG/ML 1 ML SYRINGE IVP PRN (13:55)
--- NOTE | 2018-08-05 13:55 | P.OP ---
Date of Procedure: 08/05/18 Description of Procedure: SURGEON: BENITO WHITMAN MD HOME INSPECTOR: None. PREOPERATIVE DIAGNOSES: 1. Right lower quadrant abdominal pain. 2. Acute appendicitis. 3. Leukocytosis. 4. Small bowel obstruction 5. Hypothyroidism 6. Morbid obesity due to excess calories, BMI 39.9 7. Previous pelvic surgery 8. History of heart arrhythmia POSTOPERATIVE DIAGNOSES: 1. Right lower quadrant abdominal pain. 2. Gangrenous appendicitis with periappendicitis 3. Leukocytosis. 4. Peritonitis. 5. Hypothyroidism 6. Morbid obesity due to excess calories, BMI 39.9 7. Previous pelvic surgery 8. History of heart arrhythmia 9. Small bowel obstruction due to adhesions PROCEDURES PERFORMED: 1. Diagnostic laparoscopy. 2. Laparoscopic appendectomy. ANESTHESIA: General with local ESTIMATED BLOOD LOSS: 5 mL. SPECIMENS REMOVED: Appendix including aerobic and anaerobic culture of peritoneal fluid. COMPLICATIONS: None. Pathology: other (appendix, peritoneal culture) Condition: stable Disposition: floor OPERATIVE FINDINGS: 1. Gangrenous acute appendicitis with periappendicitis 2. Small bowel obstruction due to adhesions 3. The colon was unremarkable INDICATIONS: The patient is a 58-year-old female who presents with over 2 day history of right lower quadrant abdominal pain. She reported nausea, including anorexia. CT of the abdomen and pelvis was obtained demonstrating findings consistent with acute appendicitis. Benefits and risks, including possibility of open technique were described at length. Informed consent was obtained. DESCRIPTION OR PROCEDURE: Patient was brought to the operating room, laid in supine position. After general induction, the abdomen was prepped and draped in standard sterile fashion. Prior to incision, a timeout protocol was confirmed with surgical team regarding patient's name including procedure to be performed. Preoperative antibiotic was given intraoperatively. Additionally, bilateral SCDs including heparin 5000 units was administered. A transverse infraumbilical incision was made after localizing the skin with anesthetic. A 0 degree 12 mm laparoscopic trocar entry was performed and entered into the peritoneal cavity. The abdomen was insufflated to 15 mmHg of pressure, which she tolerated well. Diagnostic laparoscopy demonstrated no injury to bowel, viscera or mesentery. Small bowel dilation with localized adhesions at the right lower quadrant involving the cecum was found. A 5 mm port was placed just above the pubis. A separate 12 mm port was placed at the left lower quadrant all under direct visualization. The patient was placed in Trendelenburg position with the right side up. Along the right lower quadrant were addressed using a combination of blunt dissection with a Kitner and atraumatic graspers. The appendix was wrapped around the ileum and dissected free. The base of the appendix is unremarkable. Dilation of the appendix consistent with appendicitis was confirmed of the mid body to the tip of the appendix. Small turbid peritoneal fluid was identified and localized in the right lower quadrant consistent with her area of peritonitis. A 45 mm Endo RAMESH echelon stapler was fired across using a hodges vascular load. Mild arterial bleed was encountered and cauterized using Bovie cautery. The abdomen was irrigated with 1 L normal saline until the aspirant was clear and dried using suction and sponge. The specimen was removed from the abdominal cavity with an Endo Catch bag through the 12 mm trocar at the left lower quadrant. All instruments and pneumoperitoneum were evacuated from the abdominal cavity. The fascial defect was less than 8 mm in size. Local anesthetic was infiltrated in all wounds for postop analgesia. Dermabond was applied to the skin after reapproximating the incisions with 4-0 Monocryl as described. Optifoam dressing was placed along the left lower quadrant , the extraction point of the appendix. At the end of the procedure, needle, sponge, and instrument count was verified correct by surgical instrument maker. The patient had tolerated the procedure well, was taken to the postanesthesia care unit in stable condition. Intraoperative abdominal films were described and discussed with her family who were overall pleased with her level of care.
[2018-08-05] MEDS: PIPERACILLIN-TAZOBACTAM 3.375 GM in SODIUM CHLORIDE 0.9% 100 ML IVPB SCH ×2 (15:52→21:05)
[2018-08-06] MEDS: SODIUM CHLORIDE 0.9% 1,000 ML IV SCH (04:10)
[2018-08-06] MEDS: PIPERACILLIN-TAZOBACTAM 3.375 GM in SODIUM CHLORIDE 0.9% 100 ML IVPB SCH ×2 (04:46→12:11)
[2018-08-06] MEDS ORDERED: LEVOTHYROXINE 112 MCG TAB PO SCH (06:30)
[2018-08-06 06:50] LABS: Basophils % (A) 0 %; Eosinophils # (A) 0.1 k/uL (0-0.7); Eosinophils % (A) 2 %; HCT 33.1 % (34.0-46.0); Lymphocytes # (A) 1.4 k/uL (1.0-4.8); Lymphocytes % (A) 20 %; MCH 30.1 pg (25.0-35.0); MCHC 31.8 g/dL (31.0-37.0); MCV 94.7 fL (80.0-100.0); Mean Platelet Volume 6.7; Monocytes # (A) 0.4 k/uL (0-1.0); Monocytes % (A) 6 %; Neutrophils # (A) 4.7 k/uL (1.3-7.7); Neutrophils % (A) 71 %; Platelet Count 179 k/uL (150-450); RDW 13.1 % (11.5-15.5); WBC 6.7 k/uL (3.8-10.6)
[2018-08-06 07:09] LABS: HGB 10.5 gm/dL (11.4-16.0)
[2018-08-06 07:50] VITALS: BP 147/86; PULSE 81; TEMP 98.9
[2018-08-06] MEDS ORDERED: ENOXAPARIN 30 MG/0.3 ML SYRINGE SQ SCH (09:00)
[2018-08-06] MEDS ORDERED: PANTOPRAZOLE 40 MG/10 ML VIAL IV SCH (09:00)
[2018-08-06] MEDS ORDERED: ASPIRIN-ACET-CAFF 250-250-65MG 1 EACH TAB PO PRN (12:15)
--- NOTE | 2018-08-09 17:59 | P.DS ---
Providers Date of admission: 08/05/18 14:24 Expected date of discharge: 08/06/18 Attending physician: Joann Cotter Primary care physician: Rhea Young - Discharge Diagnosis(es) (1) Peritoneal adhesions Status: Acute (2) Palpitations Status: Acute (3) Hyperthyroidism Status: Acute (4) History of thyroidectomy Status: Acute (5) Morbid obesity with BMI of 40.0-44.9, adult Status: Acute (6) Appendicitis Status: Acute (7) Small bowel obstruction Status: Acute Hospital Course: POSTOPERATIVE DIAGNOSES: 1. Right lower quadrant abdominal pain. 2. Gangrenous appendicitis with periappendicitis 3. Leukocytosis. 4. Peritonitis. 5. Hypothyroidism 6. Morbid obesity due to excess calories, BMI 39.9 7. Previous pelvic surgery 8. History of heart arrhythmia 9. Small bowel obstruction due to adhesions INDICATIONS: The patient is a 58-year-old female who presents with over 2 day history of right lower quadrant abdominal pain. She reported nausea, including anorexia. CT of the abdomen and pelvis was obtained demonstrating findings consistent with acute appendicitis. She underwent laparoscopic appendectomy without sequelae Prior to discharge she was tolerating diet. Her pain was well controlled. Pertinent Studies: CT of the abdomen/pelvis showing appendicitis Procedures: PROCEDURES PERFORMED: 1. Diagnostic laparoscopy. 2. Laparoscopic appendectomy. ANESTHESIA: General with local ESTIMATED BLOOD LOSS: 5 mL. SPECIMENS REMOVED: Appendix including aerobic and anaerobic culture of peritoneal fluid. COMPLICATIONS: None. Pathology: other (appendix, peritoneal culture) Condition: stable Disposition: floor OPERATIVE FINDINGS: 1. Gangrenous acute appendicitis with periappendicitis 2. Small bowel obstruction due to adhesions 3. The colon was unremarkable Patient Condition at Discharge: Good Plan - Discharge Summary Discharge Rx Participant: Yes New Discharge Prescriptions: New Amoxicillin/Potassium Clav [Augmentin 875-125 Tablet] 1 tab PO Q12HR #10 tab HYDROcodone/APAP 7.5-325MG [[place] 7.5-325] 1 tab PO Q4H PRN 3 Days #18 tab PRN Reason: Pain Continue Ginkgo Biloba [place] Extract [Ginkgo] 60 mg PO DAILY Multivitamins, Thera [Multivitamin (formulary)] 1 tab PO DAILY Cholecalciferol [Vitamin D3] 1,000 unit PO DAILY Cyanocobalamin (Vitamin B-12) [Vitamin B-12] 1,000 mcg PO DAILY Simvastatin [Zocor] 20 mg PO HS Calcium Carb-Vit D 500Mg-200Un [[place] 500+D] 1 tab PO TID Levothyroxine Sodium [Synthroid] 112 mcg PO DAILY Discharge Medication List Ginkgo Biloba [place] Extract [Ginkgo] 60 mg PO DAILY 09/07/15 [History] Multivitamins, Thera [Multivitamin (formulary)] 1 tab PO DAILY 09/07/15 [History ] Cholecalciferol [Vitamin D3] 1,000 unit PO DAILY 10/12/16 [History] Cyanocobalamin (Vitamin B-12) [Vitamin B-12] 1,000 mcg PO DAILY 01/11/17 [ History] Calcium Carb-Vit D 500Mg-200Un [[place] 500+D] 1 tab PO TID 01/13/17 [History] Simvastatin [Zocor] 20 mg PO HS 01/13/17 [History] Levothyroxine Sodium [Synthroid] 112 mcg PO DAILY 12/11/17 [History] Amoxicillin/Potassium Clav [Augmentin 875-125 Tablet] 1 tab PO Q12HR #10 tab 10/19 [Rx] HYDROcodone/APAP 7.5-325MG [[place] 7.5-325] 1 tab PO Q4H PRN 3 Days #18 tab 08/06 [Rx] Follow up Appointment(s)/Referral(s): Rhea Young MD [Primary Care Provider] - 08/08/18 9:30 am Joann Cotter MD [STAFF PHYSICIAN] - 08/14/18 4:15 pm Patient Instructions/Handouts: Appendicitis (GEN), Laparoscopic Appendectomy ( IP), Peritonitis (DC) Activity/Diet/Wound Care/Special Instructions: No lifting over 10 pounds in 1 week. May shower. No bathtub soaks. Remove dressing on abdomen on 08/10/18 and ok to get dressing wet. No return to work until cleared by surgeon 08/20/18 Discharge Disposition: HOME SELF-CARE
--- NOTE | 2018-08-10 10:02 | CDI ---
Documentation Clarification Form Date: 08/10/2018 8:51:00 AM From: Madhavi Tay Shelli Bahena, Epic Analyst Hours-8:30 am & 5 pm [place] Admit Date: 08/05/2018 2:24:00 PM Patient Name: Haleigh Garcia Visit Number: [id number] Discharge Date: 08/06/2018 4:03:00 PM ATTENTION: The Clinical Documentation Specialists (CDI) and [facility] Coding Staff appreciate your assistance in clarifying documentation. Please respond to the clarification below the line at the bottom and electronically sign. The CDI & [facility] Coding staff will review the response and follow-up if needed. Please note: Queries are made part of the Legal Health Record. If you have any questions, please contact the author of this message via ITS. Dr. Joann Cotter Patient has been described as morbid obesity. BMI is documented as 40.0-44.9 in H&P, DS BMI is documented as 39.9 on the Procedure note In order to capture the severity of condition associated with morbid obesity, please clarify: BMI 40.0-49.9 BMI 39.9 Other, please specify ____ Unable to determine NIH Classification for BMI: Overweight BMI 2529.9 Obesity (Class 1) BMI 3034.9 Obesity (Class 2) BMI 3539.9 Extreme (Morbid) (severe) obesity BMI =40 BMI 40.0-49.9 08/10/18 @ 6[facility]
--- NOTE | 2018-08-10 10:18 | CDI ---
Documentation Clarification Form Date: 08/09/2018 5:14:00 PM From: Madhavi Tay Shelli Bahena, Dowel Maker Hours-8:30 am & 5 pm [place] Admit Date: 08/05/2018 2:24:00 PM Patient Name: Haleigh Garcia Visit Number: [id number] Discharge Date: 08/06/2018 4:03:00 PM ATTENTION: The Clinical Documentation Specialists (CDI) and [facility] Coding Staff appreciate your assistance in clarifying documentation. Please respond to the clarification below the line at the bottom and electronically sign. The CDI & [facility] Coding staff will review the response and follow-up if needed. Please note: Queries are made part of the Legal Health Record. If you have any questions, please contact the author of this message via ITS. Dr. Joann Cotter Clarification of Clinical Findings: Gangrenous appendicitis with periappendicitis is documented in the Procedure and DS. Pathology documents abscess In your professional opinion, please clarify as to clinical significance of the abscess. Acute Appendicitis Acute Appendicitis w localized peritonitis, gangrene w/o perforation Acute Appendicitis w localized peritonitis, abscess w perforation Acute Appendicitis w generalized peritonitis w abscess Other Unable to determine Acute Appendicitis w localized peritonitis, gangrene w/o perforation see amended op note km 08/10/18 @[facility]
== END 2018-08-06 16:03 | disposition home or self-care (01) | DRG 342 ==
LOC: EC 19:29 → 4SSUR 23:04 → OBSVTOIN 08-05 14:24
PROVIDERS: ADMIT Surgery Plastic and Reconstructive Surgery; ATTEND Surgery Plastic and Reconstructive Surgery
PROC: 0DTJ4ZZ Resection of Appendix, Percutaneous Endoscopic Approach (ICD-10-PCS; principal; 2018-08-05 12:00)
DX: K35.31 Acute appendicitis with localized peritonitis and gangrene, without perforation (principal); K56.50 Intestinal adhesions [bands], unspecified as to partial versus complete obstruction; Z68.41 Body mass index [BMI] 40.0-44.9, adult; E66.01 Morbid (severe) obesity due to excess calories; E78.5 Hyperlipidemia, unspecified; E89.0 Postprocedural hypothyroidism; F32.9 Major depressive disorder, single episode, unspecified; Z79.890 Hormone replacement therapy; Z79.899 Other long term (current) drug therapy; Z87.891 Personal history of nicotine dependence; Z90.721 Acquired absence of ovaries, unilateral; Z82.49 Family history of ischemic heart disease and other diseases of the circulatory system; Z80.9 Family history of malignant neoplasm, unspecified
CPT/HCPCS: 36415; 74177; 80053; 81001; 82150; 83605; 83690; 85025; 87040; 87070; 87075; 87077; 87186; 87205; 88304; 96361; 96365; 96366; 96368; 96375; 96376; 99285

== ENCOUNTER → 2018-08-30 | Outpatient (CLI) | payer BC ==
--- NOTE | 2018-08-30 17:55 | CT ---
EXAMINATION TYPE: CT abdomen pelvis w con DATE OF EXAM: 08/30/2018 COMPARISON: Prior CT 08/04/2017 HISTORY: Low abdominal pain and constipation post appendectomy. CT DLP: 1649.6 mGycm Automated exposure control for dose reduction was used. TECHNIQUE: Helical acquisition of images from the lung bases through the pelvis have been completed. CONTRAST: Performed with Oral Contrast and with IV Contrast, patient injected with 100ml mL of Isovue 300. FINDINGS: LUNG BASES: No significant abnormality is appreciated. AORTA: No significant abnormality is appreciated. LIVER/GB: No significant abnormality is appreciated. PANCREAS: No significant abnormality is seen. SPLEEN: No significant abnormality is seen. ADRENALS: No significant abnormality is seen. KIDNEYS: No significant abnormality is seen. REPRODUCTIVE ORGANS: Uterus is somewhat bulky suggesting underlying fibroids. BOWEL: Interval removal of the appendix, inflammatory changes have resolved. FREE AIR: No Free Air visible. ASCITES: None visible. PELVIC ADENOPATHY: None visualized. RETROPERITONEAL ADENOPATHY: No Retroperitoneal Adenopathy visible. URINARY BLADDER: No significant abnormality is seen. OSSEOUS STRUCTURES: No significant abnormality is seen. IMPRESSION: INTERVAL APPENDECTOMY AND RESOLUTION OF PATIENT'S INFLAMMATORY CHANGES.
== END ==
LOC: RADCTMAIN 13:47
PROVIDERS: ATTEND Family Medicine
DX: K57.32 Diverticulitis of large intestine without perforation or abscess without bleeding (principal); Z90.49 Acquired absence of other specified parts of digestive tract
CPT/HCPCS: 74177; Q9967

== ENCOUNTER → 2018-11-20 | Outpatient (CLI) | payer BC ==
--- NOTE | 2018-11-21 08:48 | MM ---
Reason for exam: screening (asymptomatic). Last mammogram was performed 1 year and 1 month ago. History: Patient is postmenopausal. Family history of breast cancer in maternal grandmother at age 62. Benign left mammotome panel of the left breast, July 18, 2011. Benign ultrasound-guided core biopsy of the left breast, March 20, 2000. Benign cyst aspiration of the left breast. Took hormonal contraceptives for 2 years beginning at age 18. Physical Findings: A clinical breast exam by your physician is recommended on an annual basis and results should be correlated with mammographic findings. MG Screening Mammo w CAD Bilateral CC and MLO view(s) were taken. Prior study comparison: October 27, 2017, bilateral MG screening mammo w CAD. June 20, 2016, bilateral MG 3d screening mammo w/cad. There are scattered fibroglandular densities. There is a similar left upper outer quadrant anterior middle depth mass back to 2014 containing dystrophic calcifications, likely fibroadenoma. No suspicious abnormality. Left biopsy marker noted. No significant changes when compared with prior studies. ASSESSMENT: Benign, BI-RAD 2 RECOMMENDATION: Routine screening mammogram of both breasts in 1 year.
== END | disposition home or self-care (01) ==
LOC: RADMAMWWP 08:12
PROVIDERS: ATTEND Family Medicine
DX: Z12.31 Encounter for screening mammogram for malignant neoplasm of breast (principal)
CPT/HCPCS: 77067

== ENCOUNTER 2019-08-28 09:15 | Day surgery (SDC) | payer BC ==
[2019-08-26 11:25] VITALS: BMI 31.1
--- NOTE | 2019-08-28 07:38 | P.GSHP ---
History of Present Illness H&P Date: 08/28/19 CHIEF COMPLAINT: Colon screen HISTORY OF PRESENT ILLNESS: The patient is a 59-year-old female who presents for colon screen. Lower endoscopy was offered for further evaluation and management. PAST MEDICAL HISTORY: Please see list. PAST SURGICAL HISTORY: Please see list. MEDICATIONS: Please see list. ALLERGIES: Please see list. SOCIAL HISTORY: No illicit drug use FAMILY HISTORY: No reports of Crohn disease or ulcerative colitis. REVIEW OF ORGAN SYSTEMS: CONSTITUTIONAL: No reports of fevers or chills. PHYSICAL EXAM: VITAL SIGNS: Stable GENERAL: Well-developed pleasant in no acute distress. HEENT: No scleral icterus. Extraocular movements grossly intact. Moist buccal mucosa. NECK: Supple without lymphadenopathy. CHEST: Unlabored respirations. Equal bilateral excursions. CARDIOVASCULAR: Regular rate and rhythm. Distal 2+ pulses. ABDOMEN: Soft, nontender, nondistended. MUSCULOSKELETAL: No clubbing, cyanosis, or edema. ASSESSMENT: 1. Colon screen. PLAN: 1. Recommend proceeding with a lower endoscopy Past Medical History Past Medical History: Hyperlipidemia, Thyroid Disorder Additional Past Medical History / Comment(s): see Dr Valenzuela H&P, History of Any Multi-Drug Resistant Organisms: None Reported Past Surgical History: Appendectomy, Tonsillectomy Additional Past Surgical History / Comment(s): partial thyroidectomy, then complete thyroidectomy, left oophorectomy/salpingectomy, loop monitor insertion 07/21/14, COLONOSCOPY Past Anesthesia/Blood Transfusion Reactions: No Reported Reaction Smoking Status: Former smoker - Past Family History Mother Family Medical History: Cancer Father Family Medical History: Deep Vein Thrombosis (DVT) Medications and Allergies Home Medications Medication Instructions Recorded Confirmed Type Ginkgo Biloba [place] Extract [Ginkgo] 60 mg PO DAILY 09/07/15 08/26/19 History Multivitamins, Thera [Multivitamin 1 tab PO DAILY 09/07/15 08/26/19 History (formulary)] Cholecalciferol [Vitamin D3 (25 1,000 unit PO DAILY 10/12/16 08/26/19 History Mcg = 1000 Iu)] Cyanocobalamin (Vitamin B-12) 1,000 mcg PO DAILY 01/11/17 08/26/19 History [Vitamin B-12] Simvastatin [Zocor] 20 mg PO HS 01/13/17 08/26/19 History HYDROcodone/APAP 7.5-325MG [[place] 1 tab PO Q4H PRN 3 Days #18 tab 08/06/18 08/26/19 Rx 7.5-325] Levothyroxine Sodium [Synthroid] 88 mcg PO DAILY 08/26/19 08/26/19 History Allergies Allergy/AdvReac Type Severity Reaction Status Date / Time silicone AdvReac HAD Verified 08/26/19 11:17 INFECTION FROM NEW SILICONE EYE PADS-BILAT EYES
[~2019-08-28 09:15] MED LIST changes: +LACTATED RINGERS 1,000 ML IV SCH; +LIDOCAINE 1% 20 ML VIAL (10MG/ML) FOR IV START INTRADERMA PRN; -SODIUM CHLORIDE 0.9% 1,000 ML IV SCH; -ceFAZolin IN SWFI 2 GM/20 ML SYRINGE IVP ONE
[2019-08-28 09:55] VITALS: RESP 16; TEMP 98
[2019-08-28] MEDS ORDERED: PROPOFOL 10 MG/ML 20 ML VIAL IV ONE (11:04)
--- NOTE | 2019-08-28 11:52 | P.PCN ---
Date of Procedure: 08/28/19 Description of Procedure: PREOPERATIVE DIAGNOSIS: Colonoscopy screening POSTOPERATIVE DIAGNOSIS: Colonoscopy screening Tubular adenoma descending colon Hyperplastic polyp sigmoid colon Diverticulosis sigmoid colon OPERATION: Colonoscopy to the ileocecal valve and appendiceal orifice. Colonoscopy with hot snare polypectomy Colonoscopy with cold forceps biopsies SURGEON: Joann Cotter MD. ANESTHESIA: MAC. INDICATIONS: The patient is an 59-year-old male who presents for her first colonoscopy [facility]. Benefits and risks were described and informed consent was obtained. DESCRIPTION OF PROCEDURE: The patient had undergone Suprep. She had been brought into the operating room and laid in the left lateral decubitus position. After adequate intravenous sedation, the rectum was examined with 2% lidocaine jelly. No external hemorrhoids were encountered. The rectal tone was within normal limits. No lesions were palpated in the rectal vault. An Olympus colonoscope was advanced until the ileocecal valve and appendiceal orifice were clearly viewed. The prep was excellent Sigmoid diverticulosis was encountered. Multiple colonic polyps were found and snare polypectomy or cold forceps biopsy. No evidence of focal colitis was found. Retroflexion of the scope demonstrated grade 1 internal hemorrhoids without active bleeding or inflammation. The colon was desufflated. The patient had tolerated the procedure well. Withdrawal time was over 6 minutes. FINDINGS: Aronchick preparation quality scale 1 (1-5) Internal hemorrhoids, grade 1 No external hemorrhoids No arteriovenous malformations. Sigmoid diverticulosis Removal of 3 polyps: - Snare polypectomy 50 cm from the anal verge, 5 mm flat villous adenoma polyp, descending colon - Cold forceps biopsy at 15 cm from the anal verge, 4 mm polyp, sigmoid colon - Cold forceps biopsy at 20 cm from the anal verge, 5 mm polyp, sigmoid colon No focal colitis. RECOMMENDATIONS: Repeat colonoscopy 3 years, 2022 Plan - Discharge Summary Discharge Rx Participant: No New Discharge Prescriptions: Continue Ginkgo Biloba [place] Extract [Ginkgo] 60 mg PO DAILY Multivitamins, Thera [Multivitamin (formulary)] 1 tab PO DAILY Cholecalciferol [Vitamin D3 (25 Mcg = 1000 Iu)] 1,000 unit PO DAILY Cyanocobalamin (Vitamin B-12) [Vitamin B-12] 1,000 mcg PO DAILY Simvastatin [Zocor] 20 mg PO HS Levothyroxine Sodium [Synthroid] 88 mcg PO DAILY Discharge Medication List Ginkgo Biloba [place] Extract [Ginkgo] 60 mg PO DAILY 09/07/15 [History] Multivitamins, Thera [Multivitamin (formulary)] 1 tab PO DAILY 09/07/15 [History] Cholecalciferol [Vitamin D3 (25 Mcg = 1000 Iu)] 1,000 unit PO DAILY 10/12/16 [History] Cyanocobalamin (Vitamin B-12) [Vitamin B-12] 1,000 mcg PO DAILY 01/11/17 [History] Simvastatin [Zocor] 20 mg PO HS 01/13/17 [History] Levothyroxine Sodium [Synthroid] 88 mcg PO DAILY 08/26/19 [History] Follow up Appointment(s)/Referral(s): Joann Cotter MD [STAFF PHYSICIAN] - As Needed Patient Instructions/Handouts: Diverticulosis Diet (GEN), Diverticulosis (DC), Colorectal Polyps (GEN) Activity/Diet/Wound Care/Special Instructions: Repeat colonoscopy 3 years, 2022 Discharge Disposition: HOME SELF-CARE
[2019-08-28 12:10] VITALS: BP 133/62; PULSE 63
== END 2019-08-28 12:33 | disposition home or self-care (01) ==
LOC: ORWHC2ENDO 09:15
PROVIDERS: ATTEND Surgery Plastic and Reconstructive Surgery
DX: Z12.11 Encounter for screening for malignant neoplasm of colon (principal); K63.5 Polyp of colon; K64.0 First degree hemorrhoids; K57.30 Diverticulosis of large intestine without perforation or abscess without bleeding; E89.0 Postprocedural hypothyroidism; E78.5 Hyperlipidemia, unspecified; Z79.890 Hormone replacement therapy; Z79.899 Other long term (current) drug therapy; Z91.09 Other allergy status, other than to drugs and biological substances; Z90.49 Acquired absence of other specified parts of digestive tract; Z90.721 Acquired absence of ovaries, unilateral; Z87.891 Personal history of nicotine dependence; Z82.49 Family history of ischemic heart disease and other diseases of the circulatory system
CPT/HCPCS: 88305; 45380; 45385; J2704

== ENCOUNTER → 2021-05-14 | Outpatient (CLI) | payer BC ==
--- NOTE | 2021-05-14 15:35 | BD ---
EXAMINATION TYPE: Axial Bone Density DATE OF EXAM: 05/14/2021 COMPARISON: 10/27/2017 CLINICAL HISTORY: disorder of bone. Height: 64.5 IN Weight: 167 LBS RISK FACTORS HISTORY OF: Active: YES Diet low in dairy products/other sources of calcium: YES Postmenopausal woman: AGE 46 MEDICATIONS: Thyroid Medications:YES Which medication: SYNTHROID How Lon+ YEARS Additional Medications: CALCIUM, VIT D, SYNTHROID, SIMVASTATIN, MYBETRIX (URINARY), EXAM MEASUREMENTS: Bone mineral densitometry was performed using the [employer] System. Bone mineral density as measured about the Lumbar spine is: ----- L1-L4(G/cm2): 0.911 T Score Values are as follows: ----- L2: -2.7 ----- L3: -2.5 ----- L4: -1.8 ----- L1-L4: -2.2 Bone mineral density has: Decreased -6.5% since study of: 10/27/2017 Bone mineral density about the R hip (g/cm2): 0.858 Bone mineral density about the L hip (g/cm2): 0.853 T Score values are as follows: -----R Neck: -1.3 -----L Neck: -1.3 -----R Total: -1.3 -----L Total: -1.3 Bone mineral density has: Decreased -5.7% since study of: 10/27/2017 IMPRESSION: osteoporosis. NOTE: T-SCORE=SD OF THE YOUNG ADULT MEAN.
== END | disposition home or self-care (01) ==
LOC: RADBDWWP 07:51
PROVIDERS: ATTEND Family Medicine
DX: M81.0 Age-related osteoporosis without current pathological fracture (principal); M85.89 Other specified disorders of bone density and structure, multiple sites; Z79.899 Other long term (current) drug therapy
CPT/HCPCS: 77080

== ENCOUNTER → 2021-06-11 | Outpatient (CLI) | payer BC ==
--- NOTE | 2021-06-14 14:49 | MM ---
Reason for exam: screening (asymptomatic). Last mammogram was performed 1 year and 3 months ago. History: Patient is postmenopausal. Family history of breast cancer in paternal grandmother and breast cancer in maternal grandmother at age 62. Benign left mammotome panel of the left breast, July 18, 2011. Benign ultrasound-guided core biopsy of the left breast, March 20, 2000. Benign cyst aspiration of the left breast. Took hormonal contraceptives for 2 years beginning at age 18. Physical Findings: A clinical breast exam by your physician is recommended on an annual basis and results should be correlated with mammographic findings. MG Screening Mammo w CAD Bilateral CC and MLO view(s) were taken. Prior study comparison: March 25, 2020, bilateral MG screening mammo w CAD. November 20, 2018, bilateral MG screening mammo w CAD. There are scattered fibroglandular densities. Previous mammotome biopsy in the left breast. No significant changes when compared with prior studies. ASSESSMENT: Benign, BI-RAD 2 RECOMMENDATION: Routine screening mammogram of both breasts in 1 year.
== END | disposition home or self-care (01) ==
LOC: RADMAMWWP 08:17
PROVIDERS: ATTEND Family Medicine
DX: Z12.31 Encounter for screening mammogram for malignant neoplasm of breast (principal); Z80.3 Family history of malignant neoplasm of breast; Z78.0 Asymptomatic menopausal state
CPT/HCPCS: 77067

== ENCOUNTER → 2022-06-14 | Outpatient (CLI) | payer BC, OTHER ==
--- NOTE | 2022-06-14 17:05 | MM ---
Reason for Exam: Screening (asymptomatic). Last screening mammogram was performed 12 month(s) ago. Patient History: Menarche at age 10. First Full-Term at age 27. Right ovary removed at age 48. Postmenopausal. Hormonal Contraceptives for 2 years from age 18 until age 20. Benign Cyst Aspiration on the left side. 07/18/2011, Benign Core Biopsy on the left side. 03/20/2000, Benign Ultrasound-Guided Core Biopsy on the left side. Paternal grandmother had breast cancer. Maternal grandmother had breast cancer, age 62. Risk Values: Amber 5 year model risk: 2.7%. NCI Lifetime model risk: 10.6%. Prior Study Comparison: 11/20/2018 Bilateral Screening Mammogram, [facility]. 03/25/2020 Bilateral Screening Mammogram, [facility]. 06/11/2021 Bilateral Screening Mammogram, [facility]. Tissue Density: There are scattered fibroglandular densities. Findings: Analyzed By CAD. Mammotome biopsy clip left breast anteriorly redemonstrated. Just behind this there is stable 15 mm well-circumscribed mass with central dystrophic calcification. Stable small mass in the right axilla presumed benign lymph node is redemonstrated. There is no suspicious new group of microcalcifications or new suspicious mass in either breast. Overall Assessment: Benign, BI-RAD 2 Management: Screening Mammogram of both breasts in 1 year. A clinical breast exam by your physician is recommended on an annual basis and results should be correlated with mammographic findings. Electronically signed and approved by: Saad Siu M.D.
== END | disposition home or self-care (01) ==
LOC: RADMAMWWP 07:55
PROVIDERS: ATTEND Family Medicine
DX: Z12.31 Encounter for screening mammogram for malignant neoplasm of breast (principal); Z78.0 Asymptomatic menopausal state; Z80.3 Family history of malignant neoplasm of breast; Z98.890 Other specified postprocedural states
CPT/HCPCS: 77063; 77067

== ENCOUNTER → 2022-07-22 | Outpatient (CLI) | payer OTHER ==
--- NOTE | 2022-07-22 15:22 | US ---
EXAMINATION TYPE: US venous doppler duplex LE DATE OF EXAM: 07/22/2022 3:15 PM COMPARISON: NONE CLINICAL HISTORY: R22.41 SWELLING MASS LUMP D DIMER 883. No redness or swelling. Abnormal labs. No hx DVT. SIDE PERFORMED: Bilateral TECHNIQUE: The lower extremity deep venous system is examined utilizing real time linear array sonog tahira with graded compression, doppler sonography and color-flow sonography. VESSELS IMAGED: Common Femoral Vein Deep Femoral Vein Greater Saphenous Vein * Femoral Vein Popliteal Vein Small Saphenous Vein * Proximal Calf Veins (* superficial vessels) Grayscale, color doppler, spectral doppler imaging performed of the deep veins of the lower extremiti es. There is normal flow, compressibility, vascular waveforms. Right Leg: Negative for DVT Left Leg: Negative for DVT IMPRESSION: No evidence for deep venous thrombosis of the bilaterally lower extremities.
== END | disposition home or self-care (01) ==
LOC: RADUSWWP 14:45
PROVIDERS: ATTEND Family Medicine
DX: R22.41 Localized swelling, mass and lump, right lower limb (principal)
CPT/HCPCS: 93970

== ENCOUNTER → 2022-08-01 | Outpatient (CLI) | payer OTHER ==
--- NOTE | 2022-08-01 12:54 | US ---
EXAMINATION TYPE: US extremity nonvasc mass RT DATE OF EXAM: 08/01/2022 COMPARISON: NONE CLINICAL HISTORY: R22.41 SWELLING, MASS AND LUMP RT LOWER LIMB. TECHNIQUE: scanned over the patient's area of concern at the posterior dstal right leg at achilles/a nkle region FINDINGS/ IMPRESSION: Scanned over the patient's identified area of concern. Achilles appears wnl a s seen. It measures normal thickness up to 6 mm. No abnormality seen by ultrasound. No solid or cysti c lesion identified.
== END | disposition home or self-care (01) ==
LOC: RADUSWWP 12:19
PROVIDERS: ATTEND Family Medicine
DX: R22.41 Localized swelling, mass and lump, right lower limb (principal)

== ENCOUNTER 2022-11-16 07:55 | Day surgery (SDC) | payer OTHER ==
[2022-11-11 13:19] VITALS: BMI 30.7
[2022-11-16] MEDS ORDERED: LACTATED RINGERS 1,000 ML IV SCH (08:03)
[2022-11-16] MEDS ORDERED: LIDOCAINE 1% (10MG/ML) FOR IV START INTRADERMA PRN (08:03)
[2022-11-16 08:33] VITALS: RESP 16; TEMP 97.9
[2022-11-16] MEDS ORDERED: PROPOFOL 10 MG/ML 20 ML VIAL IV ONE (08:33)
--- NOTE | 2022-11-16 08:52 | P.GSHP ---
History of Present Illness H&P Date: 11/16/22 CHIEF COMPLAINT: Colon screen HISTORY OF PRESENT ILLNESS: The patient is a 62-year-old female who presents for colon screen. Lower endoscopy was offered for further evaluation and management. PAST MEDICAL HISTORY: Please see list. PAST SURGICAL HISTORY: Please see list. MEDICATIONS: Please see list. ALLERGIES: Please see list. SOCIAL HISTORY: No illicit drug use FAMILY HISTORY: No reports of Crohn disease or ulcerative colitis. REVIEW OF ORGAN SYSTEMS: CONSTITUTIONAL: No reports of fevers or chills. PHYSICAL EXAM: VITAL SIGNS: Stable GENERAL: Well-developed pleasant in no acute distress. HEENT: No scleral icterus. Extraocular movements grossly intact. Moist buccal mucosa. NECK: Supple without lymphadenopathy. CHEST: Unlabored respirations. Equal bilateral excursions. CARDIOVASCULAR: Regular rate and rhythm. Distal 2+ pulses. ABDOMEN: Soft, nontender, nondistended. MUSCULOSKELETAL: No clubbing, cyanosis, or edema. ASSESSMENT: 1. Colon screen. PLAN: 1. Recommend proceeding with a lower endoscopy Past Medical History Past Medical History: Hyperlipidemia, Thyroid Disorder Additional Past Medical History / Comment(s): recent tx of UTI,hx heart palpatations History of Any Multi-Drug Resistant Organisms: None Reported Past Surgical History: Appendectomy, Tonsillectomy Additional Past Surgical History / Comment(s): partial thyroidectomy, then complete thyroidectomy, left oophorectomy/salpingectomy, loop monitor insertion 07/21/14-then removed in 2019, COLONOSCOPY Past Anesthesia/Blood Transfusion Reactions: No Reported Reaction Smoking Status: Former smoker - Past Family History Mother Family Medical History: Cancer Father Family Medical History: CVA/TIA, Deep Vein Thrombosis (DVT) Additional Family Medical History / Comment(s): open heart surg x2-1 being valve replacement Medications and Allergies Home Medications Medication Instructions Recorded Confirmed Type Ginkgo Biloba [place] Extract [Ginkgo] 60 mg PO DAILY 09/07/15 11/11/22 History Multivitamins, Thera [Multivitamin 1 tab PO DAILY 09/07/15 11/11/22 History (formulary)] Cholecalciferol [Vitamin D3 (25 1,000 unit PO DAILY 10/12/16 11/11/22 History Mcg = 1000 Iu)] Cyanocobalamin (Vitamin B-12) 1,000 mcg PO DAILY 01/11/17 11/11/22 History [Vitamin B-12] Simvastatin [Zocor] 20 mg PO HS 01/13/17 11/11/22 History Levothyroxine Sodium [Synthroid] 88 mcg PO QAM 08/26/19 11/11/22 History Allergies Allergy/AdvReac Type Severity Reaction Status Date / Time No Known Allergies Allergy Verified 11/16/22 08:15 Surgical - Exam Vital Signs Temp Pulse Resp BP Pulse Ox 97.9 F 67 16 145/81 99 11/16/22 08:25 11/16/22 08:25 11/16/22 08:25 11/16/22 08:25 11/16/22 08:25
--- NOTE | 2022-11-16 09:02 | P.PCN ---
Date of Procedure: 11/16/22 Description of Procedure: PREOPERATIVE DIAGNOSIS: Colonoscopy screening. POSTOPERATIVE DIAGNOSIS: Colonoscopy screening. Diverticulosis, scattered. Pandiverticulosis OPERATION: Colonoscopy to the cecum, ileocecal valve and appendiceal orifice. SURGEON: Joann Cotter MD. ANESTHESIA: MAC. INDICATIONS: The patient is a 62-year-old female who presents for colonoscopy screening. Last colonoscopy 5 years. Benefits and risks were described and informed consent was obtained. DESCRIPTION OF PROCEDURE: The patient had undergone Sutab prep. The patient had been brought into the operating room and laid in the left lateral decubitus position. After adequate intravenous sedation, the rectum was examined with 2% lidocaine jelly. External hemorrhoids were encountered. The rectal tone was within normal limits. No lesions were palpated in the rectal vault. An Olympus colonoscope was advanced until the cecum, ileocecal valve and appendiceal orifice were clearly viewed. The prep was excellent. Scattered diverticulosis with pandiverticulosis was encountered. No colonic polyps were found. No evidence of focal colitis was found. Retroflexion of the scope demonstrated grade 2 internal hemorrhoids without active bleeding or inflammation. The colon was desufflated. The patient had tolerated the procedure well. Withdrawal time was over 6 minutes. FINDINGS: Aronchick preparation quality scale (1-5) Internal hemorrhoids, grade 2 External prolapsed hemorrhoids, grade 2 No arteriovenous malformations. No adenomatous polyps. No focal colitis. Severe pandiverticulosis Redundant sigmoid colon RECOMMENDATIONS: Lower endoscopy in 5 years, 2027 Plan - Discharge Summary Discharge Rx Participant: No New Discharge Prescriptions: Continue Ginkgo Biloba [place] Extract [Ginkgo] 60 mg PO DAILY Multivitamins, Thera [Multivitamin (formulary)] 1 tab PO DAILY Cholecalciferol [Vitamin D3 (25 Mcg = 1000 Iu)] 1,000 unit PO DAILY Cyanocobalamin (Vitamin B-12) [Vitamin B-12] 1,000 mcg PO DAILY Simvastatin [Zocor] 20 mg PO HS Levothyroxine Sodium [Synthroid] 88 mcg PO QAM Discharge Medication List Ginkgo Biloba [place] Extract [Ginkgo] 60 mg PO DAILY 09/07/15 [History] Multivitamins, Thera [Multivitamin (formulary)] 1 tab PO DAILY 09/07/15 [History] Cholecalciferol [Vitamin D3 (25 Mcg = 1000 Iu)] 1,000 unit PO DAILY 10/12/16 [History] Cyanocobalamin (Vitamin B-12) [Vitamin B-12] 1,000 mcg PO DAILY 01/11/17 [History] Simvastatin [Zocor] 20 mg PO HS 01/13/17 [History] Levothyroxine Sodium [Synthroid] 88 mcg PO QAM 08/26/19 [History] Follow up Appointment(s)/Referral(s): Joann Cotter MD [STAFF PHYSICIAN] - As Needed Patient Instructions/Handouts: Diverticulitis (GEN), Diverticulosis Diet (GEN) Activity/Diet/Wound Care/Special Instructions: Repeat colonoscopy in 5 years, 2027 Discharge Disposition: HOME SELF-CARE
[2022-11-16 09:11] VITALS: BP 143/90; PULSE 64
== END 2022-11-16 09:48 | disposition home or self-care (01) ==
LOC: ORWHC2ENDO 07:55
PROVIDERS: ATTEND Surgery Plastic and Reconstructive Surgery
DX: Z12.11 Encounter for screening for malignant neoplasm of colon (principal); K57.30 Diverticulosis of large intestine without perforation or abscess without bleeding; K64.4 Residual hemorrhoidal skin tags; K64.1 Second degree hemorrhoids; E78.5 Hyperlipidemia, unspecified; E07.9 Disorder of thyroid, unspecified; Z79.890 Hormone replacement therapy; Z87.440 Personal history of urinary (tract) infections; Z90.49 Acquired absence of other specified parts of digestive tract; Z90.89 Acquired absence of other organs; Z90.721 Acquired absence of ovaries, unilateral; Z79.899 Other long term (current) drug therapy; Z87.891 Personal history of nicotine dependence
CPT/HCPCS: 45378; J2704

== ENCOUNTER → 2023-07-20 | Outpatient (CLI) | payer MEDICARE ==
--- NOTE | 2023-07-20 18:31 | BD ---
EXAMINATION TYPE: Axial Bone Density DATE OF EXAM: 07/20/2023 CLINICAL HISTORY: 63 years old Female. ICD-10 CODE: M81.0 AGE RELATED OSTEOPOROSIS Height: 64.2in Weight: 199lb FRAX RISK QUESTIONS: Secondary Osteoporosis: RISK FACTORS HISTORY OF: MEDICATIONS: Thyroid Medications: Which medication: Synthroid How Long: about 20 years EXAM MEASUREMENTS: Bone mineral densitometry was performed using the [employer] System. Bone mineral density as measured about the Lumbar spine is: ----- L1-L4(G/cm2): 0.940 T Score Values are as follows: ----- L1: -2.4 ----- L2: -1.9 ----- L3: -2.1 ----- L4: -1.8 ----- L1-L4: -2.0 Z Score Values are as follows: ----- L1: -1.6 ----- L2: -1.2 ----- L3: -1.4 ----- L4: -1.0 ----- L1-L4: -1.3 Bone mineral density has: Decreased -0.4% since study of: 05-14-21 Bone mineral density about the R hip (g/cm2): 0.913 Bone mineral density about the L hip (g/cm2): 0.837 T Score values are as follows: -----R Neck: -0.9 -----L Neck: -1.6 -----R Total: -0.8 -----L Total: -1.4 Z Score values are as follows: -----R Neck: 0.0 -----L Neck: -0.7 -----R Total: -0.2 -----L Total: -0.8 Bone mineral density has: Increased 4% since study of: 05-14-21 FRAX%s: The graph provided illustrates a 8.7% chance for a major osteoporotic fx and a 1% chance for the hips probability for fx in 10 years time. IMPRESSION: Osteopenia (T Score between -2.5 and -1). There is slightly increased risk of fracture and the patient may be considered for treatment. Re-Screen 2-5 years. NOTE: T-SCORE=SD OF THE YOUNG ADULT MEAN.
--- NOTE | 2023-07-21 20:15 | MM ---
Reason for Exam: Screening (asymptomatic). Last mammogram was performed 1 year(s) and 1 month(s) ago. Patient History: Menarche at age 10. First Full-Term at age 27. Right ovary removed at age 48. Postmenopausal. Hormonal Contraceptives for 2 years from age 18 until age 20. Benign Cyst Aspiration on the left side. 07/18/2011, Benign Core Biopsy on the left side. 03/20/2000, Benign Ultrasound-Guided Core Biopsy on the left side. Paternal grandmother had breast cancer. Maternal grandmother had breast cancer, age 62. Risk Values: Amber 5 year model risk: 2.8%. NCI Lifetime model risk: 10.3%. Prior Study Comparison: 03/25/2020 Bilateral Screening Mammogram, [facility]. 06/11/2021 Bilateral Screening Mammogram, [facility]. 06/14/2022 Bilateral MG 3D screening mammo w/cad, [facility]. Tissue Density: There are scattered fibroglandular densities. Findings: Analyzed By CAD. Chronic nodularity on the left. Microclip left breast from prior biopsy. There is no suspicious group of microcalcifications or new suspicious mass in either breast. Overall Assessment: Benign, BI-RAD 2 Management: Screening Mammogram of both breasts in 1 year. . Patient should continue monthly self-breast exams. A clinical breast exam by your physician is recommended on an annual basis. This exam should not preclude additional follow-up of suspicious palpable abnormalities. Note on Amber scores and lifetime risk: 1. A Amber score greater than 3% is considered moderate risk. If this is the case, consider specialist referral to assess eligibility for a risk reducing agent. 2. If overall lifetime risk for the development of breast cancer is 20% or higher, the patient may qualify for future screening with alternating mammogram and breast MRI. Electronically signed and approved by: Zeina David M.D. Radiologist
== END | disposition home or self-care (01) ==
LOC: RADBDWWP 10:38
PROVIDERS: ATTEND Family Medicine
DX: Z12.31 Encounter for screening mammogram for malignant neoplasm of breast (principal); M85.89 Other specified disorders of bone density and structure, multiple sites; Z78.0 Asymptomatic menopausal state; Z80.3 Family history of malignant neoplasm of breast
CPT/HCPCS: 77063; 77067; 77080

== ENCOUNTER → 2024-11-01 | Outpatient (CLI) | payer MEDICARE ==
[2024-11-01 18:18] LABS: Basophils # (A) 0.04 X 10*3/uL (0.00-0.10); Basophils % (A) 0.8 %; Eosinophils # (A) 0.08 X 10*3/uL (0.04-0.35); Eosinophils % (A) 1.7 %; HCT 48.1 % (37.2-46.3); HGB 15.5 g/dL (12.0-15.0); Lymphocytes # (A) 1.26 X 10*3/uL (0.90-5.00); Lymphocytes % (A) 26.2 %; MCH 30.7 pg (27.0-32.0); MCHC 32.2 g/dL (32.0-37.0); MCV 95.2 FL (80.0-97.0); Mean Platelet Volume 10.9 FL (9.5-12.2); Monocytes # (A) 0.36 X 10*3/uL (0.20-1.00); Monocytes % (A) 7.5 %; NRBC Per 100 WBC 0 X 10*3/uL (0.00-0.01); Neutrophils # (A) 3.06 X 10*3/uL (1.80-7.70); Neutrophils % (A) 63.6 %; Platelet Count 285 X 10*3/uL (140-440); RBC 5.05 X 10*6/uL (4.10-5.20); WBC 4.81 X 10*3/uL (4.50-10.00)
[2024-11-01 18:47] LABS: Carbon Dioxide 23.4 mmol/L (21.6-31.8); Chloride 103 mmol/L (96-109); Chol/HDL Ratio 2.98 Ratio; Glucose 95 mg/dL (70-110); LDL Cholesterol,Calculated 147.8 mg/dL (0.0-131.0); Potassium 4.8 mmol/L (3.5-5.5); Sodium 139 mmol/L (135-145); VLDL Calculation 9.78 mg/dL (5.00-40.00)
[2024-11-01 18:48] LABS: ALT 21 U/L (8-44); AST 21 U/L (13-35); Albumin 4.5 g/dL (3.8-4.9); Albumin/Globulin Ratio 2.05 Ratio (1.60-3.17); Alkaline Phosphatase 60 U/L (41-126); Calcium 9.7 mg/dL (8.7-10.3); Globulin 2.2 g/dL (1.6-3.3); T4, Free (Free Thyroxine) 1.55 ng/dL (0.80-1.80); Total Bilirubin 0.4 mg/dL (0.3-1.2); Total Protein 6.7 g/dL (6.2-8.2)
[2024-11-01 22:35] LABS: NT-Pro-B-Type Natriuretic Pept <36 pg/mL (0-125)
== END | disposition home or self-care (01) ==
LOC: LABWHC1 12:30
PROVIDERS: ATTEND Family Medicine
DX: E78.5 Hyperlipidemia, unspecified (principal); J45.31 Mild persistent asthma with (acute) exacerbation; F04 Amnestic disorder due to known physiological condition; R73.03 Prediabetes; R60.9 Edema, unspecified; R53.82 Chronic fatigue, unspecified; R06.02 Shortness of breath
CPT/HCPCS: 36415; 80053; 80061; 82533; 82607; 82785; 83036; 83880; 84439; 84443; 84481; 85025; 86001; 86606; 86609

== ENCOUNTER → 2025-01-16 | Outpatient (CLI) | payer MEDICARE ==
--- NOTE | 2025-01-24 20:57 | P.CEMON ---
7 DAY EVENT MONITOR REPORT: INDICATION: Palpitations R00.2. START DATE: 01/16/2025 END DATE: 01/22/2025 Patient wore the monitor for 5 days 11 hours FINDINGS: Max HR 120 bpm, minimum HR 50 bpm, average HR 69 bpm 8% PVC burden, no significant PAC burden There were no observed atrial fibrillation, atrial flutter or sustained ventricular rhythm. There were no observed sinus pauses which were more than 2 second long. Patient did not report any symptoms during the study. Conclusion 8% PVC burden Please correlate clinically Vicente Pineda MD, FACC, RPVI Thank you for allowing [facility] to participate in this patient's care. Feel free to reach out in case of any followup questions.
--- NOTE | 2025-01-28 11:03 | EM ---
7 DAY EVENT MONITOR REPORT: INDICATION: Palpitations R00.2. START DATE: 01/16/2025 END DATE: 01/22/2025 Patient wore the monitor for 5 days 11 hours FINDINGS: Max HR 120 bpm, minimum HR 50 bpm, average HR 69 bpm 8% PVC burden, no significant PAC burden There were no observed atrial fibrillation, atrial flutter or sustained ventricular rhythm. There were no observed sinus pauses which were more than 2 second long. Patient did not report any symptoms during the study. Conclusion 8% PVC burden Please correlate clinically. MTDD
== END | disposition home or self-care (01) ==
LOC: RADECHMAIN 07:53
PROVIDERS: ATTEND Family Medicine
DX: I49.3 Ventricular premature depolarization (principal); R00.2 Palpitations
CPT/HCPCS: 93270